=== PATIENT | female | born 1950 | race Caucasian/White ===

== ENCOUNTER 2021-04-05 14:41 | Outpatient (REF) | payer MEDICARE, SELFPAY ==
--- NOTE | ~2021-04-05 | XR_ITS ---
EXAMINATION: XR CHEST CLINICAL INFORMATION: Chronic obstructive pulmonary disease COMPARISON: None TECHNIQUE: 2 views of the chest were obtained. FINDINGS: Micra pacer overlies the heart. The lungs are well expanded. Small left pleural effusion. Minimal left basilar atelectasis. No pneumothorax. The cardiac mediastinal silhouette is normal in size with a calcified aorta. Surgical clips in the left cervical soft tissues. Degenerative changes in the spine. XR/XR chest 2V IMPRESSION: Small left pleural effusion.
== END 2021-04-05 14:42 | disposition home or self-care (01) ==
LOC: HO.XRAY 14:41
PROVIDERS: PCP Internal Medicine; Visit Provider Hospitalist
DX: J44.9 Chronic obstructive pulmonary disease, unspecified (principal); J90 Pleural effusion, not elsewhere classified; C64.9 Malignant neoplasm of unspecified kidney, except renal pelvis; C78.02 Secondary malignant neoplasm of left lung; N18.6 End stage renal disease; Z87.891 Personal history of nicotine dependence; Z99.2 Dependence on renal dialysis
CPT/HCPCS: 71046

== ENCOUNTER 2021-04-22 09:57 | Outpatient (REF) | payer MEDICARE, SELFPAY ==
--- NOTE | 2021-04-22 13:24 | PFT_ITS ---
INDICATION: Dyspnea. SPIROMETRY: FEV1 to FVC 67% with an FEV1 of 1.02 L which is 51% predicted and an FVC of 1.52 L which is 57% predicted. No significant response to bronchodilators noted. Of note, there is evidence of small airway disease with an [id number] of 32% predicted. The maximum voluntary ventilation 40% predicted. LUNG VOLUMES: Total lung capacity 75% predicted with an expiratory reserve volume of 72% predicted. DIFFUSION CAPACITY: DLCO 36% predicted. COMPARISONS: None. INTERPRETATION: There is an obstructive ventilatory defect consistent with [id number] COPD. No significant response to bronchodilators noted. There is evidence of small airways disease. There is also severe decrease in maximum voluntary ventilation secondary to deconditioning although cannot rule out neuromuscular conditions. Lung volumes still demonstrate a mild restrictive ventilatory defect consistent with restrictive lung disease. In addition to that, the patient at the severe diffusion impairment secondary to the above. Clinical correlation warranted. Alok Callejas MD MR/MODL / [id number]
== END 2021-04-22 09:58 | disposition home or self-care (01) ==
LOC: HO.RESP 09:57
PROVIDERS: PCP Internal Medicine; Visit Provider Hospitalist
DX: J44.9 Chronic obstructive pulmonary disease, unspecified (principal); J90 Pleural effusion, not elsewhere classified
CPT/HCPCS: 94060; 94727; 94729

== ENCOUNTER → 2021-05-18 14:34 | Outpatient (BNVA) | payer MEDICARE, SELFPAY | PROVIDERS: PCP Internal Medicine; Visit Provider Hospitalist | DX: J44.9 Chronic obstructive pulmonary disease, unspecified (principal); J90 Pleural effusion, not elsewhere classified; C64.9 Malignant neoplasm of unspecified kidney, except renal pelvis | CPT/HCPCS: 94618; 99212 ==

== ENCOUNTER → 2021-08-23 10:51 | Outpatient (BNVA) | payer MEDICARE, SELFPAY | PROVIDERS: PCP Internal Medicine; Visit Provider Hospitalist | DX: J44.9 Chronic obstructive pulmonary disease, unspecified (principal); J90 Pleural effusion, not elsewhere classified; C64.9 Malignant neoplasm of unspecified kidney, except renal pelvis; N18.6 End stage renal disease; Z79.899 Other long term (current) drug therapy; Z99.2 Dependence on renal dialysis | CPT/HCPCS: 99212 ==

== ENCOUNTER 2021-09-16 10:08 | Outpatient (REF) | payer MEDICARE, SELFPAY ==
--- NOTE | ~2021-09-16 | XR_ITS ---
EXAMINATION: XR CHEST CLINICAL INFORMATION: Dyspnea COMPARISON: Chest 04/05/2021. TECHNIQUE: 2 views of the chest were obtained. FINDINGS: There is a small right pleural effusion with underlying atelectasis. The lungs are otherwise well-expanded. There are postsurgical sutures in the left lower lobe. The heart size and pulmonary vascularity is normal. There is a right jugular inserted port catheter with its tip in the mid to distal SVC. No gross bony abnormality seen. There is a digital cardiac recorder over anterior left pericardium. XR/XR chest 2V IMPRESSION: New small right pleural effusion with underlying atelectasis/consolidation. Postsurgical changes in the left lower lobe.
[2021-09-16 12:37] LABS: Basophils Absolute Auto 0.1 X10*3/uL (0.0-0.2); Basophils Percent Auto 0.7 % (0-2); Eosinophils Absolute Auto 2.9 X10*3/uL (0.0-0.4); Eosinophils Percent Auto 26.9 % (0-4); Hematocrit 24.8 % (37.0-47.0); Hemoglobin 7.7 g/dl (12.0-16.0); Imm Gran Abs Auto 0.05 X10*3/uL (0.00-0.03); Imm Gran Pct Auto 0.5 % (0.0-0.4); Lymphocytes Absolute Auto 0.8 X10*3/uL (1.2-4.9); Lymphocytes Percent Auto 7.5 % (20-40); MANUAL DIFF FLAG SCAN; Mean Corpuscular Hemoglobin 32.6 pg (27.0-33.0); Mean Corpuscular Volume 105.1 fL (80.0-98.0); Mean Platelet Volume 10.6 fL (9.4-12.3); Monocytes Percent Auto 9.1 % (2-11); Neutrophils Absolute Auto 5.9 x10*3/uL (2.0-8.3); Neutrophils Percent Auto 55.3 % (45-73); Platelet Count 188 X10*3/uL (160-400); Red Blood Count 2.36 X10*6/uL (4.20-5.50); Red Cell Distribution Width 15.2 % (11.0-16.0); SCAN SMEAR FLAG 1; White Blood Count 10.6 X10*3/uL (4.8-10.8)
[2021-09-16 12:53] LABS: D Dimer High Sensitivity 695 NG/ML
[2021-09-16 13:04] LABS: Troponin-I High Sensitivity 12.8 ng/L (<3.5-17.0)
[2021-09-16 13:10] LABS: Alanine Aminotransferase 15 U/L (0-31); Alkaline Phosphatase 88 U/L (39-117); Anion Gap 17 (12-20); Aspartate Amino Transferase 16 U/L (5-31); Bilirubin Direct < 0.2 mg/dL (0.0-0.5); Bilirubin Total 0.3 mg/dL (0.0-1.0); Blood Urea Nitrogen 34 mg/dL (9-16); Calcium 9.3 mg/dL (8.4-10.2); Carbon Dioxide 29 mmol/L (22-29); Chloride 100 mmol/L (96-108); Estimated Glomerular Filt Rate 6; Glucose Random 90 mg/dL (60-115); Potassium 4.9 mmol/L (3.3-5.1); Sodium 141 mmol/L (135-145); Total Protein 5.6 g/dL (6.5-8.0)
[2021-09-16 13:13] LABS: SLIDE REVIEW VERIFIED
[2021-09-16 13:20] LABS: Erythrocyte Sedimentation Rate 104 MM/HR (0-20)
== END 2021-09-16 10:09 | disposition home or self-care (01) ==
LOC: HO.LAB 10:08
PROVIDERS: PCP Internal Medicine; Visit Provider Hospitalist
DX: C64.9 Malignant neoplasm of unspecified kidney, except renal pelvis (principal); J90 Pleural effusion, not elsewhere classified; R06.00 Dyspnea, unspecified; J44.9 Chronic obstructive pulmonary disease, unspecified
CPT/HCPCS: 36415; 71046; 80048; 80076; 84484; 85025; 85379; 85652; 94618; 99212

== ENCOUNTER → 2021-10-06 12:32 | Outpatient (REF) | payer MEDICARE, SELFPAY ==
--- NOTE | ~2021-10-06 | XR_ITS ---
EXAMINATION: XR CHEST CLINICAL INFORMATION: Pleural effusion COMPARISON: Chest x-ray 09/16/2021 TECHNIQUE: 2 views of the chest were obtained. FINDINGS: Stable cardiac silhouette. Loop recorder projects over the heart. Right chest port in stable position with tip terminating within the distal SVC. There is atherosclerotic disease of the aortic arch. Lungs are adequately aerated. A small right-sided pleural effusion is again noted, relatively stable in size. Subtle right basilar opacities likely represent atelectasis. Postsurgical changes of the left lower lung are again noted. No pneumothorax. Diffuse osteopenia with moderate degenerative changes of the spine. XR/XR chest 2V IMPRESSION: Stable small right-sided pleural effusion.
--- NOTE | ~2021-10-06 | NM_ITS ---
EXAMINATION: NM LUNG IMAGE PERFUSION CLINICAL INFORMATION: Dyspnea. COMPARISON: Chest x-ray 10/06/2021 TECHNIQUE: Following intravenous administration of 4 mCi of 99m technetium MAA, imaging of both lungs were obtained multiple projections. Ventilation study was not performed. FINDINGS: On perfusion imaging there is known nonsegmental defect along the right lower lobe which corresponds to pleural effusion. On posterior projection there is a nonsegmental defect left lower lobe the patient has known surgical changes with sutures on the chest exam and this could represent scarring. On recent chest x-ray 10/06/2021 there is no mass seen. However there is minimal blunting of left CP angle. NM/NM pul perfusion IMPRESSION: Nonsegmental perfusion defect left lower lobe corresponding to area of surgery in the past and on the chest x-ray 10/06/2021. Findings are suggestive of less probability for PE. Nonsegmental defect right lung base corresponds to small pleural effusion seen on today's chest x-rays on 10/06/2021 and 09/16/2021.
== END ==
LOC: HO.NUCMED 12:32
PROVIDERS: PCP Internal Medicine; Visit Provider Hospitalist
DX: J44.9 Chronic obstructive pulmonary disease, unspecified (principal); J40 Bronchitis, not specified as acute or chronic; R06.00 Dyspnea, unspecified; R79.89 Other specified abnormal findings of blood chemistry; M85.88 Other specified disorders of bone density and structure, other site
CPT/HCPCS: 71046; 78580; A9540

== ENCOUNTER → 2021-10-12 10:56 | Outpatient (BNVA) | payer MEDICARE, SELFPAY | PROVIDERS: PCP Internal Medicine; Visit Provider Hospitalist | DX: C64.9 Malignant neoplasm of unspecified kidney, except renal pelvis (principal); J91.0 Malignant pleural effusion; J96.10 Chronic respiratory failure, unspecified whether with hypoxia or hypercapnia; J44.9 Chronic obstructive pulmonary disease, unspecified; N18.6 End stage renal disease; Z99.81 Dependence on supplemental oxygen; Z99.2 Dependence on renal dialysis | CPT/HCPCS: 99212 ==

== ENCOUNTER 2021-11-11 11:41 | Inpatient (IN) | payer MEDICARE, SELFPAY ==
[2021-11-11] VITALS (17 sets, daily range): BP systolic 123–248; BP diastolic 55–138; PULSE 96–125; RESP 18–37; TEMP 36.8–37.9; O2SAT 90–100; BMI 24.1
--- NOTE | ~2021-11-11 | XR_ITS ---
EXAMINATION: XR chest 1V CLINICAL INFORMATION: Shortness of breath, hypoxia. COMPARISON: Prior chest x-ray October 06, 2021. TECHNIQUE: XR chest 1V Tubes and lines: Port-A-Cath in place with its tip projecting over the SVC. Lungs and pleura: There is pulmonary vascular congestion, there is opacification over the left lung base probably infiltrate and/or atelectasis. There is right pleural effusion. Heart and mediastinum: The cardiac silhouette is enlarged.. Bones/soft tissue: Skeletal structures included are normal for patient's age. XR/XR chest 1V IMPRESSION: *Congestive heart failure. *Opacification over the left lung base probably infiltrate and/or atelectasis. *Moderate-sized right pleural effusion. *Port-A-Cath in place properly positioned.
--- NOTE | ~2021-11-11 | CT_ITS ---
EXAMINATION: CT CHEST WITHOUT CONTRAST CLINICAL INFORMATION: Acute respiratory failure, rule out pneumonia, rule out Covid COMPARISON: Chest x-ray 11/11/2021 TECHNIQUE: Multidetector volumetric CT imaging of the chest was done. Axial MIP volume rendering provided. Sagittal and coronal reformatted images were obtained. This CT examination was performed using dose optimization techniques as appropriate, variously including the following: *Automated exposure control *Adjustment of mA and/or kV according to patient size (this includes techniques or standardized protocols for targeted exams where dose is matched to indication/reason for exam; i.e. extremities or head) *Use of iterative reconstruction technique DLP: 110 mGy-cm FINDINGS: LUNGS: There are regions of confluent consolidation in the lingula, basilar left lower lobe, posterior basilar right lower lobe, and extensively throughout the right middle lobe. Additional patchy areas of mixed consolidation and groundglass opacity are present within the bilateral upper lobes and superior left lower lobe. Overall constellation of findings favors multifocal pneumonia. Some superimposed noninfectious nodularity, such as from metastatic disease, cannot be excluded. MEDIASTINUM: Visualized thyroid gland is grossly unremarkable. A few mildly enlarged prevascular and subcarinal lymph nodes are noted, which may be reactive. Cardiac size is within normal limits; no pericardial effusion. Leadless pacemaker noted. Right IJ port catheter tip lies in the region of the cavoatrial junction. Coronary artery calcifications are present. There is atherosclerotic calcification along the aorta. PLEURA: Trace pleural effusions are present, right greater than left. No pneumothorax. AXILLA: No lymphadenopathy. UPPER ABDOMEN: Unremarkable. OSSEOUS STRUCTURES: There is an expansile, lytic soft tissue lesion involving much of the right 12th rib which is suboptimally delineated on this noncontrast exam. Degenerative changes are noted in the spine. CT/CT chest wo con IMPRESSION: 1. Multifocal confluent and patchy consolidations as detailed above, suspicious for multifocal pneumonia. Appearance is not characteristic for Covid pneumonia. 2. Trace right greater than left pleural effusions. 3. Expansile lytic lesion involving much of the right 12th rib, suspicious for osseous metastasis. 4. Mild mediastinal lymphadenopathy, which could be reactive or malignant in nature.
--- NOTE | ~2021-11-11 | CT_ITS ---
EXAMINATION: CT head/brain wo con INDICATION INFORMATION: Reason for Exam changes in mental status COMPARISON: None TECHNIQUE: Separate noncontrast CT examinations of the head was performed. Coronal and sagittal images were created for each examination at the technologist workstation. This CT examination was performed using dose optimization techniques as appropriate, variously including the following: *Automated exposure control *Adjustment of mA and/or kV according to patient size (this includes techniques or standardized protocols for targeted exams where dose is matched to indication/reason for exam; i.e. extremities or head) *Use of iterative reconstruction technique DLP: 704 mGy-cm FINDINGS: Head: No acute osseous or soft tissue abnormality. Small layering fluid in the mastoid and sphenoid sinuses and frothy secretions in the left frontal sinus. There is no evidence of acute intracranial hemorrhage. No abnormal mass effect or midline shift is seen. No extra-axial fluid collections are identified. No hydrocephalus. No significant volume loss. Age-indeterminate hypodensity involving the head of the right caudate. Parenchymal hypodensity and loss of jorgensen-white matter differentiation involving the left occipital lobe, concerning for acute infarct. There are several punctate calcifications involving the left basal ganglia and insula CT/CT head/brain wo con IMPRESSION: Findings concerning for an evolving acute infarct involving the left occipital lobe. There is also an age-indeterminate hypodensity involving the head of the right caudate. Recommend further evaluation with noncontrast MRI of the brain. Above impression was communicated to Dr. Miranda on 11/14/2021 at 10:29 AM
--- NOTE | 2021-11-11 11:48 | ECG_ITS ---
Test Reason : diff breathing Blood Pressure : / mmHG Vent. Rate : 092 BPM Atrial Rate : 092 BPM P-R Int : 142 ms QRS Dur : 096 ms QT Int : 368 ms P-R-T Axes : 047 010 046 degrees QTc Int : 455 ms Normal sinus rhythm Possible Left atrial enlargement Minimal voltage criteria for LVH, may be normal variant ( [place] product ) Nonspecific ST abnormality Abnormal ECG No previous ECGs available Referred By: Ailyn Berumen Electronically Signed By:SIMI MELGAR MD
--- NOTE | 2021-11-11 11:49 | ED.SOB ---
HPI - SOB/Dyspnea General Chief Complaint: Dyspnea Stated Complaint: DIFF BREATHING Time Seen by Provider: 11/11/21 11:43 Source: patient, EMS and old records reviewed Mode of arrival: EMS Limitations: no limitations History of Present Illness HPI Narrative: 71 yo female with history of O2 dependent COPD on 1L NC at baseline, ESRD on HD M/W/F, metastatic renal cell carcinoma with pulmonary metastasis (s/p wedge resection 2020) & malignant pleural effusion s/p chemo & Ketruda who presents to the ER with worsening SOB and difficulty breathing over the last 5 days. She last got diaysis yesterday and completed a full session. She has been using her inhalers and nebulizers without improvement in her breathing. She noticed she was struggling more yesterday so she increased her oxygen from 1L to 2L NC. She reports feeling warm but denies checking her temperatures to assess for fevers. She is coughing but not bringing up phlegm, she feels like its too deep. She denies any sick contacts. She reports some non-radiating, central chest discomfort since yesterday as well. MD elicited complaint: shortness of breath Pertinent past history: COPD Onset (ago): day(s) (5) Timing: progressively worsening Severity: moderate Exacerbating factors: lying flat and exertion Relieving factors: oxygen, rest and bronchodilators Known history of: COPD Associated symptoms: cough, wheezing and chest congestion Treatment prior to arrival: oxygen and bronchodilator Related Data Home oxygen amount: 1 liter Home Medications Medication Instructions Recorded Confirmed acetaminophen 500 mg tablet 500 mg PO Q6H PRN 04/05/21 (Tylenol Extra Strength) albuterol sulfate 90 mcg/actuation 2 puff inhalation Q6H PRN wheezing 04/05/21 aerosol inhaler amiodarone 200 mg tablet 200 mg PO DAILY 04/05/21 ammonium lactate 12 % topical cream appl topical BID 04/05/21 cetirizine 10 mg tablet 10 mg PO DAILY 04/05/21 cholecalciferol (vitamin D3) 50 50 mcg PO DAILY 04/05/21 mcg (2,000 unit) tablet clopidogrel 75 mg tablet 75 mg PO DAILY 04/05/21 diphenhydramine HCl 25 mg tablet 25 mg PO Q6H PRN 04/05/21 (Benadryl Allergy) levothyroxine 25 mcg tablet 25 mcg PO DAILY 04/05/21 lidocaine 3 % topical cream 1 appl topical BID PRN 04/05/21 losartan 50 mg tablet 50 mg PO BID 04/05/21 metoprolol succinate 25 mg 25 mg PO DAILY 04/05/21 tablet,extended release 24 hr norflurane-pentafluoropropane spray topical 04/05/21 topical spray (Pain Ease Medium [place]) ondansetron 4 mg disintegrating 4 mg PO Q8H PRN nausea/vomiting 04/05/21 tablet prochlorperazine maleate 5 mg 5 mg PO DAILY PRN nausea 04/05/21 tablet sevelamer carbonate 800 mg tablet 1,600 mg PO QID 04/05/21 vitamin B complex-vitamin C-folic 1 tab PO DAILY 04/05/21 acid 0.8 mg tablet (Jackie-Kami) lorazepam 0.5 mg tablet 0.5 mg PO BID PRN anxiety 05/18/21 oxycodone 5 mg tablet 5 mg PO Q4H PRN pain 05/18/21 tramadol 50 mg tablet 25 mg PO Q12H 08/23/21 ropinirole 0.25 mg tablet 0.25 mg PO BID 09/16/21 atorvastatin 40 mg tablet 40 mg PO DAILY 10/12/21 amlodipine 5 mg tablet 1 tab PO DAILY 11/11/21 hydromorphone 2 mg tablet 1 tab PO Q6H PRN severe pain 11/11/21 lidocaine HCl 2 % mucosal solution ml PO 11/11/21 (Lidocaine Viscous) vitamin B complex-vitamin C-folic 1 tab PO DAILY 11/11/21 acid 0.8 mg tablet (Jackie-Kami) Previous Rx's Medication Instructions Recorded albuterol sulfate 2.5 mg (3 mL) inhalation BID 30 04/05/21 days #180 mL fluticasone fur. 100 mcg-umeclid 1 inh inhalation DAILY 30 days #60 05/18/21 62.5 mcg-vilant 25 mcg ea inhalat.powder (Trelegy Ellipta) Allergies Allergy/AdvReac Type Severity Reaction Status Date / Time erythromycin base Allergy Severe GI Upset Verified 10/12/21 11:05 trazodone Allergy Severe Constipatio Verified 10/12/21 11:05 n Penicillins [PENICILLINS] Allergy Intermediate RASH Unverified 10/12/21 11:05 Review of Systems Review of Systems: Constitutional: No Fever, No Chills ENT/Mouth: No sore throat, No Rhinorrhea, No Swallowing Difficulty Eyes: No Eye Pain, No Swelling, No Redness Cardiovascular: + Chest Pain, + SOB, No Orthopnea, No Edema Respiratory: +Cough, No Sputum, No Wheezing, + dyspnea Gastrointestinal: No Nausea, No Vomiting, No Diarrhea, No abdominal Pain, No Hematochezia, No Melena Genitourinary: No Dysuria, No Urinary Frequency, No Hematuria Musculoskeletal: No joint pain, No Myalgias Skin: No Skin Lesions, No rash Neuro: + Weakness, No Numbness, No Dizziness, No Headache Psych: + Anxiety/Panic, No Depression Heme/Lymph: No Bruising, No Lymphadenopathy Endocrine: No Polyuria, No Polydipsia [facility] Past Medical History Medical History (Updated 11/11/21 @ 14:25 by LOUANN Enriquez) Anemia Blood D-dimer assay positive COPD (chronic obstructive pulmonary disease) Dyspnea ESRD (end stage renal disease) on dialysis Pleural effusion Renal cell cancer Social History Social History (Updated 04/05/21 @ 14:58 by LEVAR Lua) Patient Tobacco Use Status: Former Tobacco user Tobacco use type: Cigarette Years Smoked: 30 years Advance Directives: Yes Advance Directives Information Provided: No Advance Directives on File: No Physical Exam Vital Signs: Vital Signs: Last Vital Signs Temp 99.7 F 11/11/21 11:49 Pulse 101 H 11/11/21 14:16 Resp 30 H 11/11/21 14:16 BP 133/73 11/11/21 14:16 Pulse Ox 100 11/11/21 14:16 O2 Del Method 11/11/21 14:16 FiO2 40 11/11/21 14:16 BMI result Body Mass Index 24.1 Appearance: Alert elderly female sitting up in the stretcher, moderate respiratory distress with increased work of breathing and positive accessory muscle use. Eyes: Pupils equal, round and reactive to light. ENT: Pharynx normal. Neck: Normal inspection. Neck supple. +JVD CVS: Tachycardic, regular rhythm Pulses normal. Respiratory: Moderate respiratory distress, diffuse rales and crackles throughout bilateral lung dumont. Positive accessory muscle use. Abdomen: Soft and nontender. +BS x4 Skin: Skin warm and dry. Normal skin color. Normal skin turgor. No rashes. Extremities: No lower extremity edema. Neuro: Oriented X 3. No motor deficit. No sensory deficit. Course Course Course Narrative: 71-year-old female with a history of end-stage renal disease on dialysis Monday and Monday, chronic respiratory failure on 1 L nasal cannula at baseline, COPD, malignant pleural effusion, renal cell carcinoma status post chemo, on palliative care at home who presents to the ER for evaluation of worsening shortness of breath over the last 5 days. Initially on the EMS stretcher patient was on 3 L nasal cannula and breathing comfortably. Patient was transferred to hospital stretcher and patient immediately had increased work of breathing with history rates in the 40s, she was using abdominal muscles to breathe and became pale. Her blood pressure was 250/100. She had diffuse crackles and rales to the apices ever lungs bilaterally. Respiratory called to the bedside for initiation of rescue CPAP. X-ray, EKG, lab workup pending. Patient does not appear grossly volume overloaded but with her respiratory distress and JVD she most likely has flash pulmonary edema. Topical nitropaste ordered and applied. Reevaluation(s) Reevaluation #1: Patient's work of breathing improved on CPAP of 12 with FiO2 40%. Chest x-ray with evidence of CHF, now moderate right-sided pleural effusion, possible left basilar pneumonia. [place] [address]. Will cover for possible pneumonia with vanco and cefepime given she is a dialysis patient, high risk for resistant organisms. Her COVID swab did come back positive. Her family at the bedside reports that she was initially symptomatic for COVID-19 on October 31. She tested positive 2 days later and did her home quarantine. Reevaluation #2: Blood pressure improved 160 systolic. She was also given 10 of IV labetalol. She did not take her antihypertensive this morning, which includes Lopressor. Her initial troponin is elevated at 92.8. Her BNP 1702. Potassium is in the normal range. Will speak with Nephrology about urgent dialysis session. She remains on rescue CPAP, respiratory rate 30, she is much more comfortable however. Reevaluation #3: Spoke with Dr. Jeronimo and Dr. Navarro. Plan is for urgent dialysis now. Will plan to admit to the ICU. She remains on rescue CPAP but overall is much more comfortable. Additional Reevaluation(s): Spoke with Dr. Conner who will admit to ICU for further management. He is recommending additional nitro paste which has been ordered. Patient resting comfortably on CPAP, will hold off on narcotics at this time. Consultations Consultation #1: Nephrology Consultation #2: ICU MDM - SOB/Dyspnea Lab Data Attestation: I reviewed the patient's lab results. Result diagrams: 11/11/21 12:19 11/11/21 12:19 Labs: Lab Results 11/11/21 11/11/21 11/11/21 Range/Units 12:19 12:19 12:19 WBC 16.0 H (4.8-10.8) X10*3/uL RBC 2.78 L (4.20-5.50) X10*6/uL Hgb 8.9 L (12.0-16.0) g/dl Hct 27.9 L (37.0-47.0) % MCV 100.4 H (80.0-98.0) fL MCH 32.0 (27.0-33.0) pg MCHC 31.9 (31.0-35.0) g/dl RDW 15.0 (11.0-16.0) % Plt Count 139 L D (160-400) X10*3/uL MPV 10.5 (9.4-12.3) fL Immature Gran % (Auto) 1.9 H (0.0-0.4) % Neut % (Auto) 94.8 H (45-73) % Lymph % (Auto) 0.8 L (20-40) % [place] % (Auto) 2.2 (2-11) % Eos % (Auto) 0.2 (0-4) % Baso % (Auto) 0.1 (0-2) % Lymph # (Auto) 0.1 L (1.2-4.9) X10*3/uL [place] # (Auto) 0.4 (0.1-1.2) X10*3/uL Eos # (Auto) 0.0 (0.0-0.4) X10*3/uL Baso # (Auto) 0.0 (0.0-0.2) X10*3/uL Abs Immat Gran (auto) 0.30 H (0.00-0.03) X10*3/uL Absolute Neuts (auto) 15.2 H (2.0-8.3) x10*3/uL Absolute Nucleated RBC 0.000 (0.0-0.012) X10*3/uL Nucleated RBC % (auto) 0.0 (0.0-0.2) /100WBC Smear Tech's Comments VERIFIED VBG pH (7.32-7.43) VBG pCO2 mmHg VBG pO2 mmHg VBG HCO3 (22-26) mmol/L VBG O2 Saturation % VBG Base Excess mmol/L Sodium 134 L (135-145) mmol/L Potassium 4.8 (3.3-5.1) mmol/L Chloride 94 L (96-108) mmol/L Carbon Dioxide 25 (22-29) mmol/L Anion Gap 20 (12-20) BUN 49 H (9-16) mg/dL Creatinine 6.09 H* (0.5-1.4) mg/dL Estim Creat Clear Calc 6.9 Estimated GFR 7 Random Glucose 106 (60-115) mg/dL Lactic Acid 1.0 (0.5-2.0) mmol/L Calcium 8.8 (8.4-10.2) mg/dL Magnesium 1.6 (1.6-2.6) mg/dL Total Bilirubin 0.4 (0.0-1.0) mg/dL Direct Bilirubin 0.3 (0.0-0.5) mg/dL AST 16 (5-31) U/L ALT 24 (0-31) U/L Alkaline Phosphatase 86 (39-117) U/L Troponin I High Sens (<3.5-17.0) ng/L B-Natriuretic Peptide (<100) pg/mL Total Protein 5.9 L (6.5-8.0) g/dL Albumin 3.4 L (3.5-5.0) g/dL Procalcitonin ng/mL COVID-19 ([facility]) (Negative) COVID-19 Clin Com 11/11/21 11/11/21 11/11/21 Range/Units 12:19 12:19 12:19 WBC (4.8-10.8) X10*3/uL RBC (4.20-5.50) X10*6/uL Hgb (12.0-16.0) g/dl Hct (37.0-47.0) % MCV (80.0-98.0) fL MCH (27.0-33.0) pg MCHC (31.0-35.0) g/dl RDW (11.0-16.0) % Plt Count (160-400) X10*3/uL MPV (9.4-12.3) fL Immature Gran % (Auto) (0.0-0.4) % Neut % (Auto) (45-73) % Lymph % (Auto) (20-40) % [place] % (Auto) (2-11) % Eos % (Auto) (0-4) % Baso % (Auto) (0-2) % Lymph # (Auto) (1.2-4.9) X10*3/uL [place] # (Auto) (0.1-1.2) X10*3/uL Eos # (Auto) (0.0-0.4) X10*3/uL Baso # (Auto) (0.0-0.2) X10*3/uL Abs Immat Gran (auto) (0.00-0.03) X10*3/uL Absolute Neuts (auto) (2.0-8.3) x10*3/uL Absolute Nucleated RBC (0.0-0.012) X10*3/uL Nucleated RBC % (auto) (0.0-0.2) /100WBC Smear Tech's Comments VBG pH (7.32-7.43) VBG pCO2 mmHg VBG pO2 mmHg VBG HCO3 (22-26) mmol/L VBG O2 Saturation % VBG Base Excess mmol/L Sodium (135-145) mmol/L Potassium (3.3-5.1) mmol/L Chloride (96-108) mmol/L Carbon Dioxide (22-29) mmol/L Anion Gap (12-20) BUN (9-16) mg/dL Creatinine (0.5-1.4) mg/dL Estim Creat Clear Calc Estimated GFR Random Glucose (60-115) mg/dL Lactic Acid (0.5-2.0) mmol/L Calcium (8.4-10.2) mg/dL Magnesium (1.6-2.6) mg/dL Total Bilirubin (0.0-1.0) mg/dL Direct Bilirubin (0.0-0.5) mg/dL AST (5-31) U/L ALT (0-31) U/L Alkaline Phosphatase (39-117) U/L Troponin I High Sens 92.8 H* D (<3.5-17.0) ng/L B-Natriuretic Peptide 1702 H (<100) pg/mL Total Protein (6.5-8.0) g/dL Albumin (3.5-5.0) g/dL Procalcitonin 7.76 ng/mL COVID-19 ([facility]) Positive A (Negative) COVID-19 Clin Com See Note 11/11/21 Range/Units 12:24 WBC (4.8-10.8) X10*3/uL RBC (4.20-5.50) X10*6/uL Hgb (12.0-16.0) g/dl Hct (37.0-47.0) % MCV (80.0-98.0) fL MCH (27.0-33.0) pg MCHC (31.0-35.0) g/dl RDW (11.0-16.0) % Plt Count (160-400) X10*3/uL MPV (9.4-12.3) fL Immature Gran % (Auto) (0.0-0.4) % Neut % (Auto) (45-73) % Lymph % (Auto) (20-40) % [place] % (Auto) (2-11) % Eos % (Auto) (0-4) % Baso % (Auto) (0-2) % Lymph # (Auto) (1.2-4.9) X10*3/uL [place] # (Auto) (0.1-1.2) X10*3/uL Eos # (Auto) (0.0-0.4) X10*3/uL Baso # (Auto) (0.0-0.2) X10*3/uL Abs Immat Gran (auto) (0.00-0.03) X10*3/uL Absolute Neuts (auto) (2.0-8.3) x10*3/uL Absolute Nucleated RBC (0.0-0.012) X10*3/uL Nucleated RBC % (auto) (0.0-0.2) /100WBC Smear Tech's Comments VBG pH 7.37 (7.32-7.43) VBG pCO2 41 mmHg VBG pO2 88 mmHg VBG HCO3 24 (22-26) mmol/L VBG O2 Saturation 96.0 % VBG Base Excess -0.4 mmol/L Sodium (135-145) mmol/L Potassium (3.3-5.1) mmol/L Chloride (96-108) mmol/L Carbon Dioxide (22-29) mmol/L Anion Gap (12-20) BUN (9-16) mg/dL Creatinine (0.5-1.4) mg/dL Estim Creat Clear Calc Estimated GFR Random Glucose (60-115) mg/dL Lactic Acid (0.5-2.0) mmol/L Calcium (8.4-10.2) mg/dL Magnesium (1.6-2.6) mg/dL Total Bilirubin (0.0-1.0) mg/dL Direct Bilirubin (0.0-0.5) mg/dL AST (5-31) U/L ALT (0-31) U/L Alkaline Phosphatase (39-117) U/L Troponin I High Sens (<3.5-17.0) ng/L B-Natriuretic Peptide (<100) pg/mL Total Protein (6.5-8.0) g/dL Albumin (3.5-5.0) g/dL Procalcitonin ng/mL COVID-19 ([facility]) (Negative) COVID-19 Clin Com ECG Data Attestation: I personally reviewed and interpreted this ECG as follows: ECG interpretation date: 11/11/21 ECG interpretation time: 14:15 Prior ECG tracings: available for review Interpretation: Normal sinus rhythm, heart rate 92 beats per minute, normal [place] interval, normal QTC, 1mm ST depressions in V5 and V6 Critical Care Time Critical Care Time Critical Care Time: Yes Total Critical Care Time: 55 Attestation: I have personally provided critical care time exclusive of time spent on separately billable procedures. Time includes review of lab data, radiology results, discussion with consultants, and monitoring for potential decompensation. Intervention performed as documented. Discharge Plan Discharge Clinical Impression: Flash pulmonary edema, Hypertensive urgency, Acute and chronic respiratory failure with hypoxia, Malignant pleural effusion Patient Disposition: Admitted As Inpatient
[2021-11-11] MEDS: Nitroglycerin 2 % Oint 1 GM Packet 1 INCH TRANSDERMA ×2 (12:09→14:11)
[2021-11-11 12:29] LABS: VBG Base Excess -0.4 mmol/L; VBG HCO3 24 mmol/L (22-26); VBG pCO2 41 mmHg; VBG pH 7.37 (7.32-7.43); VBG pO2 88 mmHg
[2021-11-11 12:31] LABS: Basophils Percent Auto 0.1 % (0-2); Eosinophils Percent Auto 0.2 % (0-4); Hematocrit 27.9 % (37.0-47.0); Hemoglobin 8.9 g/dl (12.0-16.0); Imm Gran Pct Auto 1.9 % (0.0-0.4); Lymphocytes Absolute Auto 0.1 X10*3/uL (1.2-4.9); Lymphocytes Percent Auto 0.8 % (20-40); MANUAL DIFF FLAG SCAN; Mean Corpuscular HGB Conc 31.9 g/dl (31.0-35.0); Mean Corpuscular Volume 100.4 fL (80.0-98.0); Mean Platelet Volume 10.5 fL (9.4-12.3); Monocytes Absolute Auto 0.4 X10*3/uL (0.1-1.2); Monocytes Percent Auto 2.2 % (2-11); Neutrophils Absolute Auto 15.2 x10*3/uL (2.0-8.3); Neutrophils Percent Auto 94.8 % (45-73); Platelet Count 139 X10*3/uL (160-400); Red Blood Count 2.78 X10*6/uL (4.20-5.50); SCAN SMEAR FLAG 1
[2021-11-11 12:34] LABS: Venous Blood Gas Refer to POC result
[2021-11-11 12:40] LABS: COVID-19 Test Positive (Negative); IDNOW Serial# 16C4AD1C
[2021-11-11 12:49] LABS: Alanine Aminotransferase 24 U/L (0-31); Albumin Level 3.4 g/dL (3.5-5.0); Alkaline Phosphatase 86 U/L (39-117); Anion Gap 20 (12-20); Aspartate Amino Transferase 16 U/L (5-31); Bilirubin Direct 0.3 mg/dL (0.0-0.5); Bilirubin Total 0.4 mg/dL (0.0-1.0); Blood Urea Nitrogen 49 mg/dL (9-16); Calcium 8.8 mg/dL (8.4-10.2); Carbon Dioxide 25 mmol/L (22-29); Chloride 94 mmol/L (96-108); Creatinine Clr Calc Pharmacy 6.9; Estimated Glomerular Filt Rate 7; Glucose Random 106 mg/dL (60-115); Magnesium 1.6 mg/dL (1.6-2.6); Potassium 4.8 mmol/L (3.3-5.1); Sodium 134 mmol/L (135-145); Total Protein 5.9 g/dL (6.5-8.0)
[2021-11-11 12:51] LABS: B Type Natriuretic Peptide 1702 pg/mL (<100); Troponin-I High Sensitivity 92.8 ng/L (<3.5-17.0)
[2021-11-11 13:03] LABS: Procalcitonin 7.76 ng/mL
[2021-11-11 13:10] LABS: SLIDE REVIEW VERIFIED
--- NOTE | 2021-11-11 15:09 | PHA.MEDREC ---
Pharmacy Consult ? Medication Reconciliation Pharmacy has completed the medication reconciliation. Med rec based on claim history
--- NOTE | 2021-11-11 15:30 | PHA.MEDREC ---
Pharmacy Consult ? Medication Reconciliation Pharmacy has completed the medication reconciliation. Completed med rec based on claim history as pt was on breathing machine, no notes or lists in chart. Entered magic mouth wash as lidocaine on med rec since not available, let provider know.;
[2021-11-11 16:05] LABS: Troponin-I High Sensitivity 176.5 ng/L (<3.5-17.0)
[2021-11-11] MEDS: HYDROmorphone HCl 0.5 MG/0.5 ML SYRINGE IVPUSH (17:00)
--- NOTE | 2021-11-11 17:10 | PM.CCHP ---
History of Present Illness Date of Service: 11/11/21 Attending physician on admission: Florentin Conner Chief Complaint: Acute respiratory distress Mrs. Webster is admitted to the ICU with acute respiratory failure secondary to hypertensive crisis induced acute pulmonary edema, for urgent hemodialysis. The patient is a 71 yo female with PMHx of O2 dependent COPD on 1L NC at home; ESRD on HD M/W/F via left arm AVF; metastatic renal cell carcinoma with pulmonary metastasis (s/p wedge resection 2020) & malignant pleural effusion, s/p chemo & Ketruda, and anemia.? She is on palliative care at home, and has DNR/DNI status. Her COVID swab did come back positive.? The patient became symptomatic for COVID-19 on October 31, tested positive 2 days later, and did her home quarantine. She was BIBA with worsening SOB x 5 days. ?She last got a full session of dialysis yesterday. She has been using her inhalers and nebulizers without improvement. ?She increased her oxygen yesterday from 1L to 2L NC. ?She reports feeling warm but did not check her temperature. She has a nonproductive cough. ?She denies sick contacts. Her medications include amiodarone, clopidogrel, thyroid, losartan, amlodipine, metoprolol, atorvastatin, oxycodone, and hydromorphone. On arrival to the ED, patient was in moderate respiratory distress with increased work of breathing and accessory muscle use.? On 40% FiO2, RR was 30, Sat 100%, HR 100, initial BP 248/104, afebrile.? She had JVD, and diffuse rales and crackles throughout the lungs.? There was no lower extremity edema.? Chest x-ray showed bilateral pulmonary infiltrates, read by the radiologist as pulmon vascular congestion/CHF, with probable bilateral pleural effusions and left lower lobe opacity of unclear etiology, not too different qualitatively from previous films, just worse. ED labs notable for a white count of 16, hemoglobin 8.9, BUN/creatinine 49/6.0, bicarb 25, potassium 4.8, lactic acid 1.0, troponin 92 which evans to 176, BNP 1702.? Venous blood gas showed 7.37/41/0.? COVID swab was positive. She was put on CPAP, blood cultures were drawn and she was given antibiotics.? She was given NTP and her BP dropped to 160 systolic.? I advised more NTP and opiates to slow her WOB.? She was then admitted to ICU for urgent HD. On my exam, she is fully awake and oriented, breathing easy on CPAP, doesn?t look very ill, and looks thoroughly nontoxic.? HR 107, BP 172/78 w 2? NTP on her chest.? On CPAP 10/30%, RR was 30, Vt 330cc, Ve 10L, Sat 99%.? We switched her to BiPAP 10/5/30%, RR was 29, Vt 460cc, Ve 13L, Sat 99%.? Temp 99?.? No JVD, no edema. IMPRESSION: 1. Underlying O2 dependent COPD 2. ESRD 3. Metastatic renal cell carcinoma, on palliative care at home.? DNR/DNI status. 4. Anemia. 5. COVID w symptom onset date October 31.? Given her comorbidities, it?s very possible that she?s still infectious.?? It?s also very possible that she?s entering the pulmonary phase. 6. Acute respiratory distress/respiratory failure.? Looks to be garden variety acute pulmonary edema 2? hypertensive crisis, that usually happens in the ESRD patients who miss a HD session (i.e. they?re underdialyzed).? And usually responds promptly to high dose IV nitroglycerin, if enough is given.? Could possibly have avoided the need for acute HD, given that this patient was not underdialyzed and was not volume overloaded. 7. ID:? I?m very doubtful that she has bacterial pneumonia.? I canceled the antibiotics that the ED had written for her. But it?s important to keep in mind that this patient is in the stage of COVID where she could enter the pulmonary phase, and develop resp failure 2? COVID, as opposed to pulmon edema.? I would suggest a chest CT when dialysis is over to further define what her current pulmonary process is, given that the CXR is not 100% clear. In any event, if she does well, she can be discharged from the ICU to the med-surg after the HD session. And if everything goes well, she doesn't need any labs tomorrow morning. ADDENDUM: At end of HD, BP is 187/99. The patient tells us that she didn't take her BP meds today (amlodipine, losartan, and metoprolol). We'll give them to her now. Also put 2 NTP back on. She's breathing easy. Came off BiPAP onto 2L NC with no problem. ADDENDUM at 20:26: BP now 127/55. She's lying comfortably in bed, breathing easy, Sat 92-94% on 2L NC. Will send her up to med-surg, stopping thru radiology to get a noncontrast chest CT on the way upstairs. Signed out to Dr. Pink. Critical care time (including extended discussion with ED staff, and multiple discussion with renal):? 80+ minutes [facility] Past Medical History Medical History (Updated 11/11/21 @ 14:25 by LOUANN Enriquez) Anemia Blood D-dimer assay positive COPD (chronic obstructive pulmonary disease) Dyspnea ESRD (end stage renal disease) on dialysis Pleural effusion Renal cell cancer Social History Social History (Updated 04/05/21 @ 14:58 by LEVAR Lua) Household Members: Family and None Housing: House Do you presently have visiting nurse or other home services: Yes Patient Tobacco Use Status: Former Tobacco user Tobacco use type: Cigarette Years Smoked: 30 years Smoked in Last 30 Days: No Use of substances other than those prescribed or required for medical reasons: No Advance Directives: No Advance Directives Information Provided: No Advance Directives on File: No Do you have thoughts of harming others: None Recently lost weight without trying: No Nutrition Risks: No Nutritional Risk Patient : No : No Poor oral hygiene: No Meds Allergies Allergy/AdvReac Type Severity Reaction Status Date / Time erythromycin base Allergy Severe GI Upset Verified 10/12/21 11:05 trazodone Allergy Severe Constipatio Verified 10/12/21 11:05 n Penicillins [PENICILLINS] Allergy Intermediate RASH Unverified 10/12/21 11:05 Active Medications: Current Medications Hydromorphone HCl (Hydromorphone Hcl 0.5 Mg/0.5 Ml Syringe) 0.5 mg IVPUSH Q30M PRN; Protocol PRN Reason: WOB Pharmacy Consult (Consult Rx Perform Med Rec) 1 each MISCELLANE ONCE PRN PRN Reason: Consult order Home Medications Medication Instructions Recorded Confirmed Last Taken Type albuterol sulfate 90 mcg/actuation 2 puff inhalation Q6H PRN wheezing 04/05/21 11/11/21 Unknown History aerosol inhaler amiodarone 200 mg tablet 200 mg PO DAILY 04/05/21 11/11/21 Unknown History cetirizine 10 mg tablet 10 mg PO DAILY 04/05/21 11/11/21 Unknown History cholecalciferol (vitamin D3) 50 50 mcg PO DAILY 04/05/21 11/11/21 Unknown History mcg (2,000 unit) tablet clopidogrel 75 mg tablet 75 mg PO DAILY 04/05/21 11/11/21 Unknown History levothyroxine 25 mcg tablet 25 mcg PO DAILY 04/05/21 11/11/21 Unknown History losartan 50 mg tablet 50 mg PO BID 04/05/21 11/11/21 Unknown History metoprolol succinate 25 mg 25 mg PO DAILY 04/05/21 11/11/21 Unknown History tablet,extended release 24 hr norflurane-pentafluoropropane 1 spray topical ONCE 04/05/21 11/11/21 Unknown History topical spray (Pain Ease Medium [place]) sevelamer carbonate 800 mg tablet 1,600 mg PO QID 04/05/21 11/11/21 Unknown History vitamin B complex-vitamin C-folic 1 tab PO DAILY 04/05/21 11/11/21 Unknown History acid 0.8 mg tablet (Jackie-Kami) lorazepam 0.5 mg tablet 0.5 mg PO BID PRN anxiety 05/18/21 11/11/21 Unknown History oxycodone 5 mg tablet 5 mg PO Q4H PRN pain 05/18/21 11/11/21 Unknown History tramadol 50 mg tablet 25 mg PO Q12H 08/23/21 11/11/21 Unknown History ropinirole 0.25 mg tablet 0.25 mg PO BID 09/16/21 11/11/21 Unknown History atorvastatin 40 mg tablet 40 mg PO DAILY 10/12/21 11/11/21 Unknown History amlodipine 5 mg tablet 1 tab PO DAILY 11/11/21 11/11/21 Unknown History lidocaine HCl 2 % mucosal solution 5 ml mucous membrane Q4H PRN Mouth 11/11/21 11/11/21 Unknown History (Lidocaine Viscous) Pain vitamin B complex-vitamin C-folic 1 tab PO DAILY 11/11/21 11/11/21 Unknown History acid 0.8 mg tablet (Jackie-Kami) Physical Exam Vital Signs: Vital Signs: Last Vital Signs Temp 99.0 F 11/11/21 17:00 Pulse 108 H 11/11/21 17:00 Resp 35 H 11/11/21 17:00 BP 169/82 H 11/11/21 17:00 Pulse Ox 97 11/11/21 17:00 O2 Del Method 11/11/21 17:00 O2 Flow Rate 15 11/11/21 15:46 FiO2 40 11/11/21 14:16 BMI result Body Mass Index 24.1 Results Labs CBC and Chem 7: 11/11/21 12:19 11/11/21 12:19 Labs: Laboratory Results - last 24 hr 11/11/21 11/11/21 11/11/21 12:19 12:19 12:19 MCV 100.4 H MCH 32.0 MCHC 31.9 RDW 15.0 Plt Count 139 L D MPV 10.5 Immature Gran % (Auto) 1.9 H Neut % (Auto) 94.8 H Lymph % (Auto) 0.8 L [place] % (Auto) 2.2 Eos % (Auto) 0.2 Baso % (Auto) 0.1 Lymph # (Auto) 0.1 L [place] # (Auto) 0.4 Eos # (Auto) 0.0 Baso # (Auto) 0.0 Abs Immat Gran (auto) 0.30 H Absolute Neuts (auto) 15.2 H Absolute Nucleated RBC 0.000 Nucleated RBC % (auto) 0.0 Smear Tech's Comments VERIFIED VBG pH VBG pCO2 VBG pO2 VBG HCO3 VBG O2 Saturation VBG Base Excess Anion Gap 20 Estim Creat Clear Calc 6.9 Estimated GFR 7 Random Glucose 106 Lactic Acid 1.0 Calcium 8.8 Magnesium 1.6 Total Bilirubin 0.4 Direct Bilirubin 0.3 AST 16 ALT 24 Alkaline Phosphatase 86 Troponin I High Sens B-Natriuretic Peptide Total Protein 5.9 L Albumin 3.4 L Procalcitonin COVID-19 ([facility]) COVID-19 Clin Com 11/11/21 11/11/21 11/11/21 12:19 12:19 12:19 MCV MCH MCHC RDW Plt Count MPV Immature Gran % (Auto) Neut % (Auto) Lymph % (Auto) [place] % (Auto) Eos % (Auto) Baso % (Auto) Lymph # (Auto) [place] # (Auto) Eos # (Auto) Baso # (Auto) Abs Immat Gran (auto) Absolute Neuts (auto) Absolute Nucleated RBC Nucleated RBC % (auto) Smear Tech's Comments VBG pH VBG pCO2 VBG pO2 VBG HCO3 VBG O2 Saturation VBG Base Excess Anion Gap Estim Creat Clear Calc Estimated GFR Random Glucose Lactic Acid Calcium Magnesium Total Bilirubin Direct Bilirubin AST ALT Alkaline Phosphatase Troponin I High Sens 92.8 H* D B-Natriuretic Peptide 1702 H Total Protein Albumin Procalcitonin 7.76 COVID-19 ([facility]) Positive A COVID-19 Clin Com See Note 11/11/21 11/11/21 12:24 15:27 MCV MCH MCHC RDW Plt Count MPV Immature Gran % (Auto) Neut % (Auto) Lymph % (Auto) [place] % (Auto) Eos % (Auto) Baso % (Auto) Lymph # (Auto) [place] # (Auto) Eos # (Auto) Baso # (Auto) Abs Immat Gran (auto) Absolute Neuts (auto) Absolute Nucleated RBC Nucleated RBC % (auto) Smear Tech's Comments VBG pH 7.37 VBG pCO2 41 VBG pO2 88 VBG HCO3 24 VBG O2 Saturation 96.0 VBG Base Excess -0.4 Anion Gap Estim Creat Clear Calc Estimated GFR Random Glucose Lactic Acid Calcium Magnesium Total Bilirubin Direct Bilirubin AST ALT Alkaline Phosphatase Troponin I High Sens 176.5 H* D B-Natriuretic Peptide Total Protein Albumin Procalcitonin COVID-19 ([facility]) COVID-[employer] Clin Com Imaging Radiologist's Impressions: Impressions Chest X-Ray 11/11/21 12:09 IMPRESSION: *Congestive heart failure. *Opacification over the left lung base probably infiltrate and/or atelectasis. *Moderate-sized right pleural effusion. *Port-A-Cath in place properly positioned. Critical Care Time Critical Care Time (minutes): 90
[2021-11-11 19:15] LABS: Troponin-I High Sensitivity 369.7 ng/L (<3.5-17.0)
[2021-11-11] MEDS: amLODIPine Besylate 5 MG TABLET PO (19:53)
[2021-11-11] MEDS: Metoprolol Succinate ER 50 MG TAB.ER.24H PO (19:53)
[2021-11-11] MEDS: Nitroglycerin 2 % Oint 1 GM Packet 2 INCH TRANSDERMA (19:54)
[2021-11-11] MEDS: Losartan Potassium 50 MG TABLET PO (19:54)
[2021-11-11] MEDS: rOPINIRole HCL 0.25 MG TABLET PO (21:55)
[2021-11-11] MEDS: traMADoL HCL 50 MG TABLET 25 MG PO (23:19)
[2021-11-12] VITALS (13 sets, daily range): BP systolic 119–176; BP diastolic 58–82; PULSE 86–141; RESP 16–35; TEMP 36.5–37.2; O2SAT 77–95; BMI 22.9
[2021-11-12] MEDS: oxyCODONE HCl Immed Release 5 MG TABLET PO ×3 (03:20→17:46)
[2021-11-12] MEDS: Levothyroxine Sodium 25 MCG TABLET PO (06:28)
[2021-11-12] MEDS: Amiodarone HCL 200 MG TABLET PO (08:40)
[2021-11-12] MEDS: Cholecalciferol (Vitamin D3) 25 MCG TABLET 50 MCG PO (08:40)
[2021-11-12] MEDS: rOPINIRole HCL 0.25 MG TABLET PO ×2 (08:40→21:31)
[2021-11-12] MEDS: Sevelamer Carbonate Tablet 800 MG TABLET 1600 MG PO ×2 (08:41→21:31)
[2021-11-12] MEDS: Losartan Potassium 50 MG TABLET PO (08:41)
[2021-11-12] MEDS: Atorvastatin Calcium 40 MG TABLET PO (08:41)
[2021-11-12] MEDS: Multivitamin TABLET 1 TAB PO (08:41)
[2021-11-12] MEDS: Loratadine 10 MG TABLET PO (08:41)
[2021-11-12] MEDS: amLODIPine Besylate 5 MG TABLET PO (08:41)
[2021-11-12] MEDS: Metoprolol Succinate ER 25 MG TAB.ER.24H PO (08:42)
[2021-11-12] MEDS: Clopidogrel Bisulfate 75 MG TABLET PO (08:42)
[2021-11-12] MEDS: traMADoL HCL 50 MG TABLET 25 MG PO ×2 (08:53→21:31)
[2021-11-12 08:58] LABS: Hematocrit 26.6 % (37.0-47.0); Hemoglobin 8.6 g/dl (12.0-16.0); Mean Corpuscular HGB Conc 32.3 g/dl (31.0-35.0); Mean Corpuscular Hemoglobin 32.1 pg (27.0-33.0); Mean Corpuscular Volume 99.3 fL (80.0-98.0); Mean Platelet Volume 10.1 fL (9.4-12.3); Platelet Count 138 X10*3/uL (160-400); Red Blood Count 2.68 X10*6/uL (4.20-5.50); Red Cell Distribution Width 14.6 % (11.0-16.0)
[2021-11-12 09:10] LABS: D Dimer High Sensitivity 1655 NG/ML
[2021-11-12 09:26] LABS: Calcium 8.1 mg/dL (8.4-10.2); Glucose Random 132 mg/dL (60-115); Lactate Dehydrogenase 205 U/L (122-220)
[2021-11-12 09:45] LABS: Procalcitonin 24.85 ng/mL
[2021-11-12 10:03] LABS: Anion Gap 25 (12-20); Blood Urea Nitrogen 71 mg/dL (9-16); Carbon Dioxide 21 mmol/L (22-29); Chloride 94 mmol/L (96-108); Creatinine Clr Calc Pharmacy 4.8; Estimated Glomerular Filt Rate 5; Potassium 5.8 mmol/L (3.3-5.1); Sodium 134 mmol/L (135-145)
[2021-11-12 10:06] LABS: C Reactive Protein 41.65 mg/dL (< or = 0.50)
[2021-11-12 10:49] LABS: Ferritin 3601 ng/mL (10-250)
--- NOTE | 2021-11-12 12:30 | CONS_ITS ---
DATE OF SERVICE: 11/12/2021 HISTORY OF PRESENT ILLNESS: I was asked to see patient to assist in evaluation and management of patient's dialysis needs as well as ultrafiltration needs in the setting of what appears to be hypertensive crisis with acute pulmonary edema. In summary, patient is a 71-year-old female with end-stage renal disease, dialyzes Monday, Monday, Monday and actually had dialysis yesterday, who now presents to the hospital with severe shortness of breath. There is also mention made that she developed COVID positive on November 02. In the emergency room, she was very short of breath and was also noted to be markedly hypertensive with systolic blood pressure over 140. X-ray showed pulmonary infiltrates consistent with pulmonary vascular congestion. Her blood pressure did come down with some treatment; however, she remained very short of breath. Decision was made to ultrafiltrate her to get her out of pulmonary edema. PAST MEDICAL HISTORY: Notable for COPD; end-stage renal disease on Monday, Monday, Monday dialysis; and history of renal cell cancer. Information was obtained from electronic medical records as patient was not able to provide much in the way of information. MEDICATIONS: On admission are noted in the admitting notes. Current medications are noted in the MAR. REVIEW OF SYSTEMS: Unobtainable. ALLERGIES: NOTED IN THE ELECTRONIC MEDICAL RECORD. PHYSICAL EXAMINATION: GENERAL: She is on BiPAP, having difficult time with breathing, unable really to converse. HEENT: Head is atraumatic. Mucous membranes are moist. LUNGS: Rhonchi and rales. CARDIAC: Regular rate and rhythm. ABDOMEN: Soft. EXTREMITIES: No edema. LABORATORY DATA: Show hemoglobin 8.9, hematocrit 27.9, white blood cell count 16,000. Sodium 134, potassium 4.8, chloride 94, bicarb 25. BNP was 1702. IMPRESSION: 71-year-old end-stage renal disease patient admitted with hypertensive crisis and acute pulmonary edema on the backdrop of end-stage renal disease, chronic obstructive pulmonary disease, and recent COVID. 1. Severe shortness of breath. This is most likely hypertensive crisis with pulmonary edema. Controlling her blood pressure improved her breathing somewhat, but not as much as we would like so we would go ahead and ultrafiltrate her for a few hours, pull fluid, and see if this helps with her respiratory decompensated state. She is being seen by the bundle cutter and other considerations such as COVID lung needs to be entertained. 2. End-stage renal disease. Normally dialyzes Monday, Monday, Monday. Keep her on that schedule. 3. Anemia. 4. Hypertensive crisis. Blood pressure medications as noted will be continued and we will track her blood pressures. SUGGESTIONS: At this time include, 1. Emergent ultrafiltration. 2. Follow her respiratory status closely. 3. Control her blood pressure. 4. Continue routine medications. 5. Continue with dialysis on Monday, Monday, and Monday. MD DAQUAN Villa/GWEN / [phone]
[2021-11-12] MEDS: ondansetron HCL 4 MG/2 ML VIAL IVPUSH (13:10)
--- NOTE | 2021-11-12 14:09 | P.PNNP_ITS ---
Subjective Subjective Date of Service: 11/12/21 Interval history: seen on HD today continues to be short of breath rhinorrhea noted Physical Exam Vital Signs: Vital Signs: Last Vital Signs Temp 98.0 F 11/12/21 12:04 Pulse 88 11/12/21 12:04 Resp 19 11/12/21 12:04 BP 153/67 H 11/12/21 12:04 Pulse Ox 91 L 11/12/21 13:20 O2 Del Method 11/12/21 13:20 O2 Flow Rate 4 11/12/21 13:20 FiO2 30 11/11/21 18:51 Oxygen Flow Rate 30 11/11/21 14:04 BMI result Body Mass Index 22.9 Const: General: alert, awake and in distress Chest: Chest palpation & inspection: normal inspection of the chest Resp: Effort & Inspection: Actively coughing and labored Auscultation: rales Cardio: Rate: regular rate GI: Inspection: Yes normal to inspection Palpation (GI): Soft to palpation Extrem: Other: LUE AVF with bruit and thrill. Objective Data Labs CBC & Chem 7: 11/12/21 08:51 11/12/21 08:51 Labs: Laboratory Results - last 24 hr 11/11/21 11/11/21 11/12/21 15:27 18:27 08:51 WBC 18.0 H RBC 2.68 L Hgb 8.6 L Hct 26.6 L MCV 99.3 H MCH 32.1 MCHC 32.3 RDW 14.6 Plt Count 138 L MPV 10.1 Absolute Nucleated RBC 0.000 Nucleated RBC % (auto) 0.0 D-Dimer High Sensitivty Sodium Potassium Chloride Carbon Dioxide Anion Gap BUN Creatinine Estim Creat Clear Calc Estimated GFR Random Glucose Calcium Ferritin Lactate Dehydrogenase Troponin I High Sens 176.5 H* D 369.7 H* D C-Reactive Protein Procalcitonin 11/12/21 11/12/21 11/12/21 08:51 08:51 08:51 WBC RBC Hgb Hct MCV MCH MCHC RDW Plt Count MPV Absolute Nucleated RBC Nucleated RBC % (auto) D-Dimer High Sensitivty 1655 Sodium 134 L Potassium 5.8 H D Chloride 94 L Carbon Dioxide 21 L Anion Gap 25 H BUN 71 H Creatinine 7.92 H* Estim Creat Clear Calc 4.8 Estimated GFR 5 Random Glucose 132 H Calcium 8.1 L D Ferritin 3601 H Lactate Dehydrogenase 205 Troponin I High Sens C-Reactive Protein 41.65 H Procalcitonin 24.85 Procedures Date of Service Date of Service: 11/12/21 Assessment & Plan Assessment and plan (1) Flash pulmonary edema: Status: Acute (2) Hypertensive urgency: Status: Acute (3) Renal cancer: Status: Acute Plan 71-year-old end-stage renal disease patient admitted with hypertensive crisis and acute pulmonary edema on the backdrop of end-stage renal disease, chronic obstructive pulmonary disease, and recent COVID. 1. Severe shortness of breath.?requiring extra isoUF session 11/11/21 2. End-stage renal disease.? Normally dialyzes Monday, Monday, Monday.? Keep her on that schedule. She has no missed hD sessions, last dialyzed in communited 11/10 prior to presentation. 3. Anemia. 4. Hypertensive crisis.? Blood pressure medications as noted will be continued and we will track her blood pressures. ? Plan: - HD today per [facility] schedule. We will UF 3L plan - Renal diet - Change losartan to 100mg daily - increase amlodipine to 10mg daily - sepsis care as you are. Time Spent With Patient Time: Total time spent is greater than 50% in coordination of care (as documented) at patient's floor/unit and/or counseling patient:
--- NOTE | 2021-11-12 17:17 | HO.PM.IMPN ---
Subjective Subjective Date of Service: 11/13/21 Interval History: seen and examined this AM feels slightly better than yesterday breathing still not at baseline Review of Systems negative except interval history Physical Exam Vital Signs: Vital Signs: Last Vital Signs Temp 98.0 F 11/12/21 12:04 Pulse 88 11/12/21 12:04 Resp 19 11/12/21 12:04 BP 153/67 H 11/12/21 12:04 Pulse Ox 91 L 11/12/21 13:20 O2 Del Method 11/12/21 13:20 O2 Flow Rate 4 11/12/21 13:20 FiO2 30 11/11/21 18:51 Oxygen Flow Rate 30 11/11/21 14:04 BMI result Body Mass Index 22.9 Const: Other: General - no acute distress, appears comfortable Cardiovascular - regular rate and rhythm, S1-S2 Lungs - no respiratory muscle use; scattered coarse sounds Abdomen - soft, nontender, no rebound or guarding Extremities - no edema bilaterally Neuro - awake and alert, no focal deficits Objective Data Active Medications Albuterol Sulfate (Albuterol Sulfate 90 Mcg 8 Gm Inhaler) 2 puff INHALE Q6H PRN PRN Reason: wheezing Amiodarone HCl (Amiodarone Hcl 200 Mg Tablet) 200 mg PO DAILY [facility] Last Admin: 11/12/21 08:40 Dose: 200 mg Documented By: BEL Amlodipine Besylate (Amlodipine Besylate 10 Mg Tablet) 10 mg PO DAILY [facility]; Protocol Atorvastatin Calcium (Atorvastatin Calcium 40 Mg Tablet) 40 mg PO DAILY [facility] Last Admin: 11/12/21 08:41 Dose: 40 mg Documented By: BEL Clopidogrel Bisulfate (Clopidogrel Bisulfate 75 Mg Tablet) 75 mg PO DAILY [facility] Last Admin: 11/12/21 08:42 Dose: 75 mg Documented By: BEL Vancomycin HCl 1,000 mg/ (Sodium Chloride) 270 mls @ 270 mls/hr IV MoWeFr@1800 [facility] Cefepime HCl 1 gm/ Sodium (Chloride) 50 mls @ 100 mls/hr IV Q24H [facility] Levothyroxine Sodium (Levothyroxine Sodium 25 Mcg Tablet) 25 mcg PO DAILY@0600 [facility] Last Admin: 11/12/21 06:28 Dose: 25 mcg Documented By: LISET Lidocaine/Diphenhydr/Alum/Mg/Simeth (Mag&Al/Sim/Diphenhyd/Lidocaine 10 Ml Oral.Susp) 5 ml PO Q4H PRN PRN Reason: Mouth Pain Loratadine (Loratadine 10 Mg Tablet) 10 mg PO DAILY [facility] Last Admin: 11/12/21 08:41 Dose: 10 mg Documented By: BEL Lorazepam (Lorazepam 0.5 Mg Tablet) 0.5 mg PO BID PRN PRN Reason: anxiety Losartan Potassium (Losartan Potassium 50 Mg Tablet) 100 mg PO DAILY [facility]; Protocol Metoprolol Succinate (Metoprolol Succinate Er 25 Mg Tab.Er.24h) 25 mg PO DAILY [facility]; Protocol Last Admin: 11/12/21 08:42 Dose: 25 mg Documented By: BEL Multivitamins/Vitamin C (Multivitamin Tablet) 1 tab PO DAILY [facility] Last Admin: 11/12/21 08:41 Dose: 1 tab Documented By: BEL Non-Formulary Medication (Gqfrkqbqfyq-Rqtftuelr-Llxftrrp [Trelegy Ellipta]) 1 inhalation INHALE DAILY [facility] Ondansetron HCl (Ondansetron Hcl 4 Mg/2 Ml Vial) 4 mg IVPUSH Q8H PRN PRN Reason: Nausea and Vomiting Last Admin: 11/12/21 13:10 Dose: 4 mg Documented By: BEL Oxycodone HCl (Oxycodone Hcl Immed Release 5 Mg Tablet) 5 mg PO Q4H PRN PRN Reason: Pain, Moderate (Pain Scale 4-6 Last Admin: 11/12/21 13:51 Dose: 5 mg Documented By: BEL Pharmacy Consult (Consult Rx Perform Med Rec) 1 each MISCELLANE ONCE PRN PRN Reason: Consult order Pharmacy Consult (Consult Rx Vancomycin Dosing) 1 each MISCELLANE DAILY PRN PRN Reason: Consult order Ropinirole HCl (Ropinirole Hcl 0.25 Mg Tablet) 0.25 mg PO BID [facility] Last Admin: 11/12/21 08:40 Dose: 0.25 mg Documented By: BEL Sevelamer Carbonate (Sevelamer Carbonate Tablet 800 Mg Tablet) 1,600 mg PO QID [facility] Last Admin: 11/12/21 08:41 Dose: 1,600 mg Documented By: BEL Tramadol HCl (Tramadol Hcl 50 Mg Tablet) 25 mg PO Q12H [facility] Last Admin: 11/12/21 08:53 Dose: 25 mg Documented By: BEL Vitamin D (Cholecalciferol (Vitamin D3) 25 Mcg Tablet) 50 mcg PO DAILY [facility] Last Admin: 11/12/21 08:40 Dose: 50 mcg Documented By: BEL Labs CBC & Chem 7: 11/13/21 08:22 11/13/21 08:22 Labs: Laboratory Results - last 24 hr 11/11/21 11/12/21 11/12/21 18:27 08:51 08:51 MCV 99.3 H MCH 32.1 MCHC 32.3 RDW 14.6 Plt Count 138 L MPV 10.1 Absolute Nucleated RBC 0.000 Nucleated RBC % (auto) 0.0 D-Dimer High Sensitivty 1655 Anion Gap Estim Creat Clear Calc Estimated GFR Random Glucose Calcium Ferritin Lactate Dehydrogenase Troponin I High Sens 369.7 H* D C-Reactive Protein Procalcitonin 11/12/21 11/12/21 08:51 08:51 MCV MCH MCHC RDW Plt Count MPV Absolute Nucleated RBC Nucleated RBC % (auto) D-Dimer High Sensitivty Anion Gap 25 H Estim Creat Clear Calc 4.8 Estimated GFR 5 Random Glucose 132 H Calcium 8.1 L D Ferritin 3601 H Lactate Dehydrogenase 205 Troponin I High Sens C-Reactive Protein 41.65 H Procalcitonin 24.85 Assessment and Plan (1) Acute and chronic respiratory failure with hypoxia: Status: Acute Plan This is a 71-year-old female with a past medical history of chronic respiratory failure with hypoxia on home O2, ESRD on dialysis Monday, metastatic renal cell carcinoma on palliative care at home who was diagnosed with COVID on October 31. She presented to [facility] on 11/11/2020 with acute shortness of breath and respiratory distress. She was found to have significantly elevated blood pressures over 200 systolic for urgent dialysis. She was transferred out once improved the same day. 1. Acute on chronic respiratory failure with hypoxia Required brief duration of BiPAP support in the intensive care unit. She is now tolerating her baseline 2. Suspected pneumonia (bacterial) Patient tested positive for COVID on 10/31. During the same time she was being worked up for temporal arteritis and hence was prescribed empiric prednisone 60 mg which she took for 14 days. Now her procalcitonin is significantly increased and I suspect she likely has superimposed bacterial pneumonia On empiric IV cefepime and vancomycin Trend procalcitonin and CBC 3. COVID positive Tested positive more than 2 weeks ago and completed 2 weeks of high-dose steroids for a different reason. Unclear if any benefits for the usual covid treamtents. Will ask ID for input 4. ESRD on HD MWF, continue dialysis per nephrology recs 5. Mestatic Renal Cell Ca on palliative care as oupatient Continue otherbaseline meds as appropriate. DNR/DNI DVT pptx -- heparin Quality Stroke Does the patient have a stroke diagnosis?: No VTE Prior VTE?: No VTE Risk Level:: Medical - low VTE Device Contraindication: N/A - Device Ordered VTE Drug Contraindication: Treatment Not Indicated
[2021-11-12] MEDS: vancomycin HCL 1,250 MG in 0.9 % Sodium Chloride 250 ML 166.67 MG IV (18:33)
[2021-11-12] MEDS: cefEPime HCl 1 GM in 0.9 % Sodium Chloride 50 ML IV (21:28)
[2021-11-13] VITALS (7 sets, daily range): BP systolic 113–142; BP diastolic 48–70; PULSE 82–105; RESP 17–20; TEMP 36.6–37.1; O2SAT 90–98
[2021-11-13] MEDS: oxyCODONE HCl Immed Release 5 MG TABLET PO ×2 (02:50→14:07)
[2021-11-13] MEDS: ondansetron HCL 4 MG/2 ML VIAL IVPUSH (02:51)
[2021-11-13] MEDS: Levothyroxine Sodium 25 MCG TABLET PO (05:51)
[2021-11-13 08:32] LABS: Hematocrit 27.1 % (37.0-47.0); Hemoglobin 8.6 g/dl (12.0-16.0); Mean Corpuscular HGB Conc 31.7 g/dl (31.0-35.0); Mean Corpuscular Hemoglobin 32.2 pg (27.0-33.0); Mean Corpuscular Volume 101.5 fL (80.0-98.0); Mean Platelet Volume 10.6 fL (9.4-12.3); Platelet Count 161 X10*3/uL (160-400); Red Blood Count 2.67 X10*6/uL (4.20-5.50); Red Cell Distribution Width 14.6 % (11.0-16.0); White Blood Count 15.7 X10*3/uL (4.8-10.8)
[2021-11-13] MEDS: Sevelamer Carbonate Tablet 800 MG TABLET 1600 MG PO ×3 (08:36→21:01)
[2021-11-13] MEDS: Metoprolol Succinate ER 25 MG TAB.ER.24H PO (08:38)
[2021-11-13] MEDS: Clopidogrel Bisulfate 75 MG TABLET PO (08:38)
[2021-11-13] MEDS: rOPINIRole HCL 0.25 MG TABLET PO ×2 (08:38→21:01)
[2021-11-13] MEDS: Atorvastatin Calcium 40 MG TABLET PO (08:39)
[2021-11-13] MEDS: amLODIPine Besylate 10 MG TABLET PO (08:39)
[2021-11-13] MEDS: Cholecalciferol (Vitamin D3) 25 MCG TABLET 50 MCG PO (08:39)
[2021-11-13] MEDS: Amiodarone HCL 200 MG TABLET PO (08:39)
[2021-11-13] MEDS: Loratadine 10 MG TABLET PO (08:39)
[2021-11-13] MEDS: Losartan Potassium 50 MG TABLET 100 MG PO (08:39)
[2021-11-13] MEDS: Multivitamin TABLET 1 TAB PO (08:40)
[2021-11-13] MEDS: traMADoL HCL 50 MG TABLET 25 MG PO ×2 (08:41→21:06)
[2021-11-13 09:22] LABS: Anion Gap 25 (12-20); Blood Urea Nitrogen 62 mg/dL (9-16); Calcium 9.2 mg/dL (8.4-10.2); Carbon Dioxide 24 mmol/L (22-29); Chloride 97 mmol/L (96-108); Creatinine Clr Calc Pharmacy 5.8; Estimated Glomerular Filt Rate 6; Glucose Random 100 mg/dL (60-115); Potassium 5.6 mmol/L (3.3-5.1); Sodium 140 mmol/L (135-145)
--- NOTE | 2021-11-13 09:28 | MHC.CM.PN ---
CM attempted to reach Patient at her room Extension [phone] (Covid (+)) but was unable to do so. CM spoke with Daughter/HCP/Carli @ [phone] and addressed IMM with her (original to be mailed certified letter to Carli and a copy has been placed on the chart). Patient lives in an apartment with her Sister and [id number] and she is active with [facility] for O2 and she uses a cane for outdoor travel. Home/resume said services is the goal and WILLI has initiated and will follow for dc planning. Patient receives HD at [facility] and she is Moderna/Covid vax X2. PCP is DR. Natalia Mayer.
[2021-11-13 10:00] LABS: Procalcitonin 58.73 ng/mL
[2021-11-13] MEDS: Heparin Sodium,Porcine 5,000 UNIT/ML VIAL 5000 UNIT SUBCUT ×2 (13:01→23:36)
--- NOTE | 2021-11-13 13:56 | P.PNNP_ITS ---
Subjective Subjective Date of Service: 11/13/21 Interval history: IsoUf on iHD on Monday Resp status and BP better Physical Exam 2 Vital Signs: Vital Signs: Last Vital Signs Temp 98.7 F 11/13/21 11:48 Pulse 97 11/13/21 11:48 Resp 18 11/13/21 11:48 BP 127/60 11/13/21 11:48 Pulse Ox 92 11/13/21 11:48 O2 Del Method 11/13/21 11:48 O2 Flow Rate 6 11/13/21 11:48 FiO2 30 11/11/21 18:51 Oxygen Flow Rate 30 11/11/21 14:04 BMI result Body Mass Index 22.9 Const: General: alert, awake and in distress Chest: Chest palpation & inspection: normal inspection of the chest Resp: Effort & Inspection: Actively coughing and labored Auscultation: rales Cardio: Rate: regular rate GI: Inspection: Yes normal to inspection Palpation (GI): Soft to palpation Extrem: Other: LUE AVF with bruit and thrill. Objective Data Labs CBC & Chem 7: 11/13/21 08:22 11/13/21 08:22 Labs: Laboratory Results - last 24 hr 11/13/21 11/13/21 11/13/21 08:22 08:22 08:22 WBC 15.7 H RBC 2.67 L Hgb 8.6 L Hct 27.1 L MCV 101.5 H MCH 32.2 MCHC 31.7 RDW 14.6 Plt Count 161 MPV 10.6 Absolute Nucleated RBC 0.000 Nucleated RBC % (auto) 0.0 Sodium 140 Potassium 5.6 H Chloride 97 Carbon Dioxide 24 Anion Gap 25 H BUN 62 H Creatinine 6.63 H* Estim Creat Clear Calc 5.8 Estimated GFR 6 Random Glucose 100 Calcium 9.2 D Procalcitonin 58.73 Microbiology Microbiology Results: Microbiology 11/11/21 15:27 Blood - Venous Blood Culture - Preliminary No growth after 24 hours. 11/11/21 15:27 Blood - Venous Blood Culture - Preliminary No growth after 24 hours. Procedures Date of Service Date of Service: 11/13/21 Assessment & Plan Assessment and plan (1) Flash pulmonary edema: Status: Acute (2) Hypertensive urgency: Status: Acute (3) Renal cancer: Status: Acute Plan 71-year-old end-stage renal disease patient admitted with hypertensive crisis and acute pulmonary edema on the backdrop of end-stage renal disease, chronic obstructive pulmonary disease, and recent COVID. 1. Severe shortness of breath.?requiring extra isoUF session 11/11/21 2. End-stage renal disease.? Normally dialyzes Monday, Monday, Monday.? Keep her on that schedule. She has no missed hD sessions, last dialyzed in communited 11/10 prior to presentation. 3. Anemia. 4. Hypertensive crisis.? Blood pressure medications as noted will be continued and we will track her blood pressures. ? Plan: - HD next on [facility] schedule. - Renal diet - C/w losartan 100mg daily - c/w amlodipine to 10mg daily Time Spent With Patient Time: Total time spent is greater than 50% in coordination of care (as documented) at patient's floor/unit and/or counseling patient: Progress Note: Quality Stroke Does the patient have a stroke diagnosis?: No
--- NOTE | 2021-11-13 14:11 | HO.PM.IMPN ---
Subjective Subjective Date of Service: 11/13/21 Interval History: seen and exained this AM feels more tired and sleepy today reports no changes in respiratory status oxygen requirements increasing daughter is bedside -- updates given Review of Systems negative except interval history Physical Exam Vital Signs: Vital Signs: Last Vital Signs Temp 98.7 F 11/13/21 11:48 Pulse 97 11/13/21 11:48 Resp 18 11/13/21 11:48 BP 127/60 11/13/21 11:48 Pulse Ox 92 11/13/21 11:48 O2 Del Method 11/13/21 11:48 O2 Flow Rate 6 11/13/21 11:48 FiO2 30 11/11/21 18:51 Oxygen Flow Rate 30 11/11/21 14:04 BMI result Body Mass Index 22.9 Const: Other: General - no respiratory distress, more somnolent today but arousable Cardiovascular - regular rate and rhythm, S1-S2 Lungs - no respiratory muscle use; son 6L this AM with sats around 90 Abdomen - soft, nontender, no rebound or guarding Extremities - no edema bilaterally Neuro - awake and alert, no focal deficits, moving all 4 limbs Objective Data Active Medications Albuterol Sulfate (Albuterol Sulfate 90 Mcg 8 Gm Inhaler) 2 puff INHALE Q6H PRN PRN Reason: wheezing Amiodarone HCl (Amiodarone Hcl 200 Mg Tablet) 200 mg PO DAILY [facility] Last Admin: 11/13/21 08:39 Dose: 200 mg Documented By: DEVENDRA Amlodipine Besylate (Amlodipine Besylate 10 Mg Tablet) 10 mg PO DAILY [facility]; Protocol Last Admin: 11/13/21 08:39 Dose: 10 mg Documented By: DEVENDRA Atorvastatin Calcium (Atorvastatin Calcium 40 Mg Tablet) 40 mg PO DAILY [facility] Last Admin: 11/13/21 08:39 Dose: 40 mg Documented By: DEVENDRA Clopidogrel Bisulfate (Clopidogrel Bisulfate 75 Mg Tablet) 75 mg PO DAILY [facility] Last Admin: 11/13/21 08:38 Dose: 75 mg Documented By: DEVENDRA Heparin Sodium (Porcine) (Heparin Sodium,Porcine 5,000 Unit/Ml Vial) 5,000 unit SUBCUT Q12H [facility] Last Admin: 11/13/21 13:01 Dose: 5,000 unit Documented By: DEVENDRA Vancomycin HCl 1,000 mg/ (Sodium Chloride) 270 mls @ 270 mls/hr IV MoWeFr@1800 [facility] Cefepime HCl 1 gm/ Sodium (Chloride) 50 mls @ 100 mls/hr IV Q24H [facility] Last Infusion: 11/12/21 22:10 Dose: 0 mls/hr Documented By: CAESAR Levothyroxine Sodium (Levothyroxine Sodium 25 Mcg Tablet) 25 mcg PO DAILY@0600 [facility] Last Admin: 11/13/21 05:51 Dose: 25 mcg Documented By: ANTCIRO Lidocaine/Diphenhydr/Alum/Mg/Simeth (Mag&Al/Sim/Diphenhyd/Lidocaine 10 Ml Oral.Susp) 5 ml PO Q4H PRN PRN Reason: Mouth Pain Loratadine (Loratadine 10 Mg Tablet) 10 mg PO DAILY [facility] Last Admin: 11/13/21 08:39 Dose: 10 mg Documented By: DEVENDRA Lorazepam (Lorazepam 0.5 Mg Tablet) 0.5 mg PO BID PRN PRN Reason: anxiety Losartan Potassium (Losartan Potassium 50 Mg Tablet) 100 mg PO DAILY [facility]; Protocol Last Admin: 11/13/21 08:39 Dose: 100 mg Documented By: DEVENDRA Metoprolol Succinate (Metoprolol Succinate Er 25 Mg Tab.Er.24h) 25 mg PO DAILY [facility]; Protocol Last Admin: 11/13/21 08:38 Dose: 25 mg Documented By: DEVENDRA Multivitamins/Vitamin C (Multivitamin Tablet) 1 tab PO DAILY [facility] Last Admin: 11/13/21 08:40 Dose: 1 tab Documented By: DEVENDRA Non-Formulary Medication (Wmwrzrcwpmf-Pbmypftlj-Tagfdgcz [Trelegy Ellipta]) 1 inhalation INHALE DAILY [facility] Ondansetron HCl (Ondansetron Hcl 4 Mg/2 Ml Vial) 4 mg IVPUSH Q8H PRN PRN Reason: Nausea and Vomiting Last Admin: 11/13/21 02:51 Dose: 4 mg Documented By: FOSVALERIE Oxycodone HCl (Oxycodone Hcl Immed Release 5 Mg Tablet) 5 mg PO Q4H PRN PRN Reason: Pain, Moderate (Pain Scale 4-6 Last Admin: 11/13/21 14:07 Dose: 5 mg Documented By: DEVENDRA Pharmacy Consult (Consult Rx Perform Med Rec) 1 each MISCELLANE ONCE PRN PRN Reason: Consult order Pharmacy Consult (Consult Rx Vancomycin Dosing) 1 each MISCELLANE DAILY PRN PRN Reason: Consult order Ropinirole HCl (Ropinirole Hcl 0.25 Mg Tablet) 0.25 mg PO BID [facility] Last Admin: 11/13/21 08:38 Dose: 0.25 mg Documented By: DEVENDRA Sevelamer Carbonate (Sevelamer Carbonate Tablet 800 Mg Tablet) 1,600 mg PO QID [facility] Last Admin: 11/13/21 13:01 Dose: 1,600 mg Documented By: DEVENDRA Tramadol HCl (Tramadol Hcl 50 Mg Tablet) 25 mg PO Q12H [facility] Last Admin: 11/13/21 08:41 Dose: 25 mg Documented By: DEVENDRA Vitamin D (Cholecalciferol (Vitamin D3) 25 Mcg Tablet) 50 mcg PO DAILY [facility] Last Admin: 11/13/21 08:39 Dose: 50 mcg Documented By: DEVENDRA Labs CBC & Chem 7: 11/13/21 08:22 11/13/21 08:22 Labs: Laboratory Results - last 24 hr 11/13/21 11/13/21 11/13/21 08:22 08:22 08:22 MCV 101.5 H MCH 32.2 MCHC 31.7 RDW 14.6 Plt Count 161 MPV 10.6 Absolute Nucleated RBC 0.000 Nucleated RBC % (auto) 0.0 Anion Gap 25 H Estim Creat Clear Calc 5.8 Estimated GFR 6 Random Glucose 100 Calcium 9.2 D Procalcitonin 58.73 Microbiology Microbiology Results: Microbiology 11/11/21 15:27 Blood Culture - Preliminary Blood - Venous No growth after 24 hours. 11/11/21 15:27 Blood Culture - Preliminary Blood - Venous No growth after 24 hours. Assessment and Plan (1) Acute and chronic respiratory failure with hypoxia: Status: Acute Plan This is a 71-year-old female with a past medical history of chronic respiratory failure with hypoxia on home O2, ESRD on dialysis Monday, metastatic renal cell carcinoma on palliative care at home who was diagnosed with COVID on October 31. She presented to [facility] on 11/11/2020 with acute shortness of breath and respiratory distress. She was found to have significantly elevated blood pressures over 200 systolic for urgent dialysis. She was transferred out once improved the same day. 1. Acute on chronic respiratory failure with hypoxia O2 requirements increasing, now on 6L to maintain sats around 90 2. Suspected pneumonia (bacterial) procalcitonin is significantly elevated continue vancomcyin/cefepime - day #2 f/u clutures 3. COVID positive Tested positive more than 2 weeks ago and completed 2 weeks of high-dose steroids for a different reason (empiric rx for temporal artirits) unclear if she would benefit form any covid therapy given duration of postive test; will ask for ID input continue oxygen 4. ESRD on HD MWF, continue dialysis per nephrology recs 5. Mestatic Renal Cell Ca on palliative care as outpatient Continue otherbaseline meds as appropriate. DNR/DNI DVT pptx -- heparin d/w the daughter Quality Stroke Does the patient have a stroke diagnosis?: No VTE Prior VTE?: No VTE Risk Level:: Medical - low VTE Device Contraindication: N/A - Device Ordered VTE Drug Contraindication: Treatment Not Indicated
[2021-11-13] MEDS: cefEPime HCl 1 GM in 0.9 % Sodium Chloride 50 ML IV (21:05)
--- NOTE | 2021-11-13 23:16 | P.CNID_ITS ---
History of Present Illness Data of Consult Service Date: 11/13/21 Requesting physician: Nani Andrews Primary Care Provider: Natalia Mayer MD HPI Reason for consult: shortness of breath She comes in with two weeks karl puga She has no fever or chills. Review of Systems Review of Systems: Yes all other systems are reviewed and are negative PMFSH Past Medical History Medical History Anemia Blood D-dimer assay positive COPD (chronic obstructive pulmonary disease) Dyspnea ESRD (end stage renal disease) on dialysis Pleural effusion Renal cell cancer Social History Social History Household Members: Family and None Housing: House Do you presently have visiting nurse or other home services: Yes Patient Tobacco Use Status: Former Tobacco user Tobacco use type: Cigarette Years Smoked: 30 years Smoked in Last 30 Days: No Use of substances other than those prescribed or required for medical reasons: No Currently Displaying Signs/Symptoms of Drug Intoxication Withdrawal: No Advance Directives: No Advance Directives Information Provided: No Advance Directives on File: No Do you have thoughts of harming others: None Recently lost weight without trying: No Nutrition Risks: No Nutritional Risk Patient : No : No Poor oral hygiene: No service: No Current occupational status: retired Meds Allergies Allergy/AdvReac Type Severity Reaction Status Date / Time erythromycin base Allergy Severe GI Upset Verified 10/12/21 11:05 trazodone Allergy Severe Constipatio Verified 10/12/21 11:05 n Penicillins [PENICILLINS] Allergy Intermediate RASH Unverified 10/12/21 11:05 Active Medications: Current Medications Albuterol Sulfate (Albuterol Sulfate 90 Mcg 8 Gm Inhaler) 2 puff INHALE Q6H PRN PRN Reason: wheezing Amiodarone HCl (Amiodarone Hcl 200 Mg Tablet) 200 mg PO DAILY [facility] Last Admin: 11/13/21 08:39 Dose: 200 mg Amlodipine Besylate (Amlodipine Besylate 10 Mg Tablet) 10 mg PO DAILY [facility]EL[facility]; Protocol Last Admin: 11/13/21 08:39 Dose: 10 mg Atorvastatin Calcium (Atorvastatin Calcium 40 Mg Tablet) 40 mg PO DAILY [facility] Last Admin: 11/13/21 08:39 Dose: 40 mg Clopidogrel Bisulfate (Clopidogrel Bisulfate 75 Mg Tablet) 75 mg PO DAILY [facility] Last Admin: 11/13/21 08:38 Dose: 75 mg Heparin Sodium (Porcine) (Heparin Sodium,Porcine 5,000 Unit/Ml Vial) 5,000 unit SUBCUT Q12H [facility] Last Admin: 11/13/21 13:01 Dose: 5,000 unit Vancomycin HCl 1,000 mg/ (Sodium Chloride) 270 mls @ 270 mls/hr IV MoWeFr@1800 [facility] Cefepime HCl 1 gm/ Sodium (Chloride) 50 mls @ 100 mls/hr IV Q24H [facility] Last Infusion: 11/13/21 21:40 Dose: Infused Levothyroxine Sodium (Levothyroxine Sodium 25 Mcg Tablet) 25 mcg PO DAILY@0600 [facility] Last Admin: 11/13/21 05:51 Dose: 25 mcg Lidocaine/Diphenhydr/Alum/Mg/Simeth (Mag&Al/Sim/Diphenhyd/Lidocaine 10 Ml Oral.Susp) 5 ml PO Q4H PRN PRN Reason: Mouth Pain Loratadine (Loratadine 10 Mg Tablet) 10 mg PO DAILY [facility] Last Admin: 11/13/21 08:39 Dose: 10 mg Lorazepam (Lorazepam 0.5 Mg Tablet) 0.5 mg PO BID PRN PRN Reason: anxiety Losartan Potassium (Losartan Potassium 50 Mg Tablet) 100 mg PO DAILY [facility]; Protocol Last Admin: 11/13/21 08:39 Dose: 100 mg Metoprolol Succinate (Metoprolol Succinate Er 25 Mg Tab.Er.24h) 25 mg PO DAILY [facility]; Protocol Last Admin: 11/13/21 08:38 Dose: 25 mg Multivitamins/Vitamin C (Multivitamin Tablet) 1 tab PO DAILY [facility] Last Admin: 11/13/21 08:40 Dose: 1 tab Non-Formulary Medication (Jpfbqublzqj-Eelwitsaf-Bllwrcac [Trelegy Ellipta]) 1 inhalation INHALE DAILY [facility] Ondansetron HCl (Ondansetron Hcl 4 Mg/2 Ml Vial) 4 mg IVPUSH Q8H PRN PRN Reason: Nausea and Vomiting Last Admin: 11/13/21 02:51 Dose: 4 mg Oxycodone HCl (Oxycodone Hcl Immed Release 5 Mg Tablet) 5 mg PO Q4H PRN PRN Reason: Pain, Moderate (Pain Scale 4-6 Last Admin: 11/13/21 14:07 Dose: 5 mg Pharmacy Consult (Consult Rx Perform Med Rec) 1 each MISCELLANE ONCE PRN PRN Reason: Consult order Pharmacy Consult (Consult Rx Vancomycin Dosing) 1 each MISCELLANE DAILY PRN PRN Reason: Consult order Ropinirole HCl (Ropinirole Hcl 0.25 Mg Tablet) 0.25 mg PO BID [facility] Last Admin: 11/13/21 21:01 Dose: 0.25 mg Sevelamer Carbonate (Sevelamer Carbonate Tablet 800 Mg Tablet) 1,600 mg PO QID [facility] Last Admin: 11/13/21 21:01 Dose: 1,600 mg Tramadol HCl (Tramadol Hcl 50 Mg Tablet) 25 mg PO Q12H [facility] Last Admin: 11/13/21 21:06 Dose: 25 mg Vitamin D (Cholecalciferol (Vitamin D3) 25 Mcg Tablet) 50 mcg PO DAILY [facility] Last Admin: 11/13/21 08:39 Dose: 50 mcg Home Medications Medication Instructions Recorded Confirmed Last Taken Type albuterol sulfate 90 mcg/actuation 2 puff inhalation Q6H PRN wheezing 04/05/21 11/11/21 Unknown History aerosol inhaler amiodarone 200 mg tablet 200 mg PO DAILY 04/05/21 11/11/21 Unknown History cetirizine 10 mg tablet 10 mg PO DAILY 04/05/21 11/11/21 Unknown History cholecalciferol (vitamin D3) 50 50 mcg PO DAILY 04/05/21 11/11/21 Unknown History mcg (2,000 unit) tablet clopidogrel 75 mg tablet 75 mg PO DAILY 04/05/21 11/11/21 Unknown History levothyroxine 25 mcg tablet 25 mcg PO DAILY 04/05/21 11/11/21 Unknown History losartan 50 mg tablet 50 mg PO BID 04/05/21 11/11/21 Unknown History metoprolol succinate 25 mg 25 mg PO DAILY 04/05/21 11/11/21 Unknown History tablet,extended release 24 hr norflurane-pentafluoropropane 1 spray topical ONCE 04/05/21 11/11/21 Unknown History topical spray (Pain Ease Medium [place]) sevelamer carbonate 800 mg tablet 1,600 mg PO QID 04/05/21 11/11/21 Unknown History vitamin B complex-vitamin C-folic 1 tab PO DAILY 04/05/21 11/11/21 Unknown History acid 0.8 mg tablet (Jackie-Kami) lorazepam 0.5 mg tablet 0.5 mg PO BID PRN anxiety 05/18/21 11/11/21 Unknown History oxycodone 5 mg tablet 5 mg PO Q4H PRN pain 05/18/21 11/11/21 Unknown History tramadol 50 mg tablet 25 mg PO Q12H 08/23/21 11/11/21 Unknown History ropinirole 0.25 mg tablet 0.25 mg PO BID 09/16/21 11/11/21 Unknown History atorvastatin 40 mg tablet 40 mg PO DAILY 10/12/21 11/11/21 Unknown History amlodipine 5 mg tablet 1 tab PO DAILY 11/11/21 11/11/21 Unknown History lidocaine HCl 2 % mucosal solution 5 ml mucous membrane Q4H PRN Mouth 11/11/21 11/11/21 Unknown History (Lidocaine Viscous) Pain vitamin B complex-vitamin C-folic 1 tab PO DAILY 11/11/21 11/11/21 Unknown History acid 0.8 mg tablet (Jackie-Kami) Physical Exam Vital Signs: Vital Signs: Last Vital Signs Temp 97.8 F 11/13/21 20:00 Pulse 82 11/13/21 20:00 Resp 17 11/13/21 20:00 BP 142/59 H 11/13/21 20:00 Pulse Ox 92 11/13/21 20:00 O2 Del Method 11/13/21 20:00 O2 Flow Rate 6 11/13/21 20:00 FiO2 30 11/11/21 18:51 Oxygen Flow Rate 30 11/11/21 14:04 BMI result Body Mass Index 22.9 Const: General: cooperative HEENT: Head: Yes normal to inspection Face and sinus: Yes normal facial exam Mouth: Normal oral and palatal mucosa present Teeth and gingiva: dentition normal Eyes: General: appearance normal, both eyes and all related structures Pupils: Equal, round and reactive pupils present Resp: Effort & Inspection: normal respiratory effort Cardio: Rate: regular rate Rhythm: regular rhythm GI: Palpation (GI): Soft to palpation and nontender : General: Yes no CVA tenderness Back/Spine/Pelvis: Back: no CVA tenderness Skin: General skin exam: no rashes or lesions noted Neuro: General: moves all extremities Cranial nerves: Yes Equal, round and reactive pupils present Extrem: General: Yes normal to inspection Psych: Appearance: grossly normal Results Labs CBC & Chem 7: 11/13/21 08:22 11/13/21 08:22 Labs: Short CBC 11/13/21 Range/Units 08:22 WBC 15.7 H (4.8-10.8) X10*3/uL Hgb 8.6 L (12.0-16.0) g/dl Hct 27.1 L (37.0-47.0) % Plt Count 161 (160-400) X10*3/uL BMP 11/13/21 08:22 Sodium 140 Potassium 5.6 H Chloride 97 Carbon Dioxide 24 BUN 62 H Creatinine 6.63 H* Calcium 9.2 D Microbiology Microbiology Results: Microbiology 11/11/21 15:27 Blood - Venous Blood Culture - Preliminary No growth after 48 hours. 11/11/21 15:27 Blood - Venous Blood Culture - Preliminary No growth after 48 hours. Assessment and Plan (1) ESRD (end stage renal disease) on dialysis: Status: Acute (2) Acute and chronic respiratory failure with hypoxia: Status: Acute She had COVID 13 days ago,too late to treat She has pleural effusion,pneumonia possible postviral Pseudomonas or staph Plan Cefepime 5-7d Stop Vancomycin if MRSA nares negative.
[2021-11-14] VITALS (7 sets, daily range): BP systolic 94–160; BP diastolic 41–70; PULSE 87–194; RESP 18–20; TEMP 36.5–37.2; O2SAT 93–100
[2021-11-14] MEDS: Haloperidol Lactate 5 MG/ML VIAL 2.5 MG IVPUSH (03:28)
--- NOTE | 2021-11-14 03:36 | MHC.PIE ---
p; pt notied with increasing anxiety and confusion. pt found trying to get out of bed and pulling off oxygen mask. pt unable to follow orders and unsafe for po medications at this time. (prn ativan) i; dr arias notifed; new order haldol iv now. camera placed in room e; will cont to monitor
[2021-11-14] MEDS: Levothyroxine Sodium 25 MCG TABLET PO (05:38)
--- NOTE | 2021-11-14 08:49 | HO.PM.IMPN ---
Subjective Subjective Date of Service: 11/14/21 Interval History: seen and examined this AM more alert compared to yesterday but appears confused, reports not feeling well Review of Systems unable to assess Physical Exam Vital Signs: Vital Signs: Last Vital Signs Temp 98.6 F 11/14/21 04:00 Pulse 194 H 11/14/21 04:00 Resp 20 11/14/21 04:00 BP 140/65 H 11/14/21 04:00 Pulse Ox 99 11/14/21 04:00 O2 Del Method 11/14/21 04:00 O2 Flow Rate 6 11/14/21 04:00 FiO2 30 11/11/21 18:51 Oxygen Flow Rate 30 11/11/21 14:04 BMI result Body Mass Index 22.9 Const: Other: General - more alert compared to yesterday, does not know where she is Cardiovascular - regular rate and rhythm, S1-S2 Lungs - no accessory muscle useage Abdomen - soft, nontender, no rebound or guarding Extremities - no edema bilaterally Neuro - moves all 4 limbs spontaneously but not upon command; pupils equal and reactive; no obvious facial asymmetry Objective Data Active Medications Albuterol Sulfate (Albuterol Sulfate 90 Mcg 8 Gm Inhaler) 2 puff INHALE Q6H PRN PRN Reason: wheezing Amiodarone HCl (Amiodarone Hcl 200 Mg Tablet) 200 mg PO DAILY [facility] Last Admin: 11/13/21 08:39 Dose: 200 mg Documented By: DEVENDRA Amlodipine Besylate (Amlodipine Besylate 10 Mg Tablet) 10 mg PO DAILY [facility]; Protocol Last Admin: 11/13/21 08:39 Dose: 10 mg Documented By: DEVENDRA Atorvastatin Calcium (Atorvastatin Calcium 40 Mg Tablet) 40 mg PO DAILY [facility] Last Admin: 11/13/21 08:39 Dose: 40 mg Documented By: DEVENDRA Clopidogrel Bisulfate (Clopidogrel Bisulfate 75 Mg Tablet) 75 mg PO DAILY [facility] Last Admin: 11/13/21 08:38 Dose: 75 mg Documented By: DEVENDRA Heparin Sodium (Porcine) (Heparin Sodium,Porcine 5,000 Unit/Ml Vial) 5,000 unit SUBCUT Q12H [facility] Last Admin: 11/13/21 23:36 Dose: 5,000 unit Documented By: MARNI Vancomycin HCl 1,000 mg/ (Sodium Chloride) 270 mls @ 270 mls/hr IV MoWeFr@1800 [facility] Cefepime HCl 1 gm/ Sodium (Chloride) 50 mls @ 100 mls/hr IV Q24H [facility] Last Infusion: 11/13/21 21:40 Dose: 0 mls/hr Documented By: MARNI Levothyroxine Sodium (Levothyroxine Sodium 25 Mcg Tablet) 25 mcg PO DAILY@0600 [facility] Last Admin: 11/14/21 05:38 Dose: 25 mcg Documented By: MARNI Lidocaine/Diphenhydr/Alum/Mg/Simeth (Mag&Al/Sim/Diphenhyd/Lidocaine 10 Ml Oral.Susp) 5 ml PO Q4H PRN PRN Reason: Mouth Pain Loratadine (Loratadine 10 Mg Tablet) 10 mg PO DAILY [facility] Last Admin: 11/13/21 08:39 Dose: 10 mg Documented By: DEVENDRA Lorazepam (Lorazepam 0.5 Mg Tablet) 0.5 mg PO BID PRN PRN Reason: anxiety Losartan Potassium (Losartan Potassium 50 Mg Tablet) 100 mg PO DAILY [facility]; Protocol Last Admin: 11/13/21 08:39 Dose: 100 mg Documented By: DEVENDRA Metoprolol Succinate (Metoprolol Succinate Er 25 Mg Tab.Er.24h) 25 mg PO DAILY [facility]; Protocol Last Admin: 11/13/21 08:38 Dose: 25 mg Documented By: DEVENDRA Multivitamins/Vitamin C (Multivitamin Tablet) 1 tab PO DAILY [facility] Last Admin: 11/13/21 08:40 Dose: 1 tab Documented By: DEVENDRA Non-Formulary Medication (Wpqrlhohfou-Hrpwndpen-Fwiacvww [Trelegy Ellipta]) 1 inhalation INHALE DAILY [facility] Ondansetron HCl (Ondansetron Hcl 4 Mg/2 Ml Vial) 4 mg IVPUSH Q8H PRN PRN Reason: Nausea and Vomiting Last Admin: 11/13/21 02:51 Dose: 4 mg Documented By: VICKY Oxycodone HCl (Oxycodone Hcl Immed Release 5 Mg Tablet) 5 mg PO Q4H PRN PRN Reason: Pain, Moderate (Pain Scale 4-6 Last Admin: 11/13/21 14:07 Dose: 5 mg Documented By: DEVENDRA Pharmacy Consult (Consult Rx Perform Med Rec) 1 each MISCELLANE ONCE PRN PRN Reason: Consult order Pharmacy Consult (Consult Rx Vancomycin Dosing) 1 each MISCELLANE DAILY PRN PRN Reason: Consult order Ropinirole HCl (Ropinirole Hcl 0.25 Mg Tablet) 0.25 mg PO BID [facility] Last Admin: 11/13/21 21:01 Dose: 0.25 mg Documented By: MARNI Sevelamer Carbonate (Sevelamer Carbonate Tablet 800 Mg Tablet) 1,600 mg PO QID [facility] Last Admin: 11/13/21 21:01 Dose: 1,600 mg Documented By: MARNI Tramadol HCl (Tramadol Hcl 50 Mg Tablet) 25 mg PO Q12H [facility] Last Admin: 11/13/21 21:06 Dose: 25 mg Documented By: MARNI Vitamin D (Cholecalciferol (Vitamin D3) 25 Mcg Tablet) 50 mcg PO DAILY [facility] Last Admin: 11/13/21 08:39 Dose: 50 mcg Documented By: DEVENDRA Labs CBC & Chem 7: 11/13/21 08:22 11/13/21 08:22 Labs: Laboratory Results - last 24 hr 11/13/21 11/13/21 08:22 08:22 Anion Gap 25 H Estim Creat Clear Calc 5.8 Estimated GFR 6 Random Glucose 100 Calcium 9.2 D Procalcitonin 58.73 Microbiology Microbiology Results: Microbiology 11/11/21 15:27 Blood Culture - Preliminary Blood - Venous No growth after 48 hours. 11/11/21 15:27 Blood Culture - Preliminary Blood - Venous No growth after 48 hours. Assessment and Plan (1) Acute and chronic respiratory failure with hypoxia: Status: Acute Plan This is a 71-year-old female with a past medical history of chronic respiratory failure with hypoxia on home O2, ESRD on dialysis Monday, metastatic renal cell carcinoma on palliative care at home who was diagnosed with COVID on October 31. She [facility] [place] [facility] [place] with acute shortness of breath and respiratory distress. She was found to have significantly elevated blood pressures over 200 systolic for urgent dialysis. She was transferred out once improved the same day. 1. Acute Encephalopathy check ABG and CT head stat 2. Acute on chronic respiratory failure with hypoxia continue O2 -- goal 90-92 wean as tolerated 3. Suspected pneumonia (bacterial) procalcitonin is significantly elevated continue vancomcyin/cefepime - day #2 ID input appreciated -- d/c vancomcyin if nasal MRSA negative 4. COVID positive Tested positive more than 2 weeks ago and completed 2 weeks of high-dose steroids for a different reason (empiric rx for temporal artirits) ID input appreciated 5. ESRD on HD MWF, continue dialysis per nephrology recs 6. Mestatic Renal Cell Ca on palliative care as outpatient Continue other baseline meds as appropriate. DNR/DNI DVT pptx -- heparin Quality Stroke Does the patient have a stroke diagnosis?: No VTE Prior VTE?: No VTE Risk Level:: Medical - low VTE Device Contraindication: N/A - Device Ordered VTE Drug Contraindication: Treatment Not Indicated
[2021-11-14 09:38] LABS: ABG Base Excess -4.7 mmol/L; ABG HCO3 21 mmol/L (22-26); ABG pCO2 44 mmHg (32-45); ABG pH 7.28 (7.35-7.45); ABG pO2 166 mmHg (83-108)
[2021-11-14 10:50] LABS: ABG Refer to POC result
--- NOTE | 2021-11-14 11:17 | PM.EVENT ---
Event Note Date of Service: 11/14/21 Event Note: CT brain showing findings concerning for an evolving acute infarct of the left occipital lobe. There is also a age indeterminate hypodensity involving the right caudate D/w the patietnts daughter bedside. Options of proceeding with further work up for CVA vs conservative care vs comfort care discussed. At this time IA have informed her that I would not proceed with any further workup for the stroke due to her baseline metastatic cancer. However I also told her that it is too early in the process for me to recommend comfort care. I did let her know that over the next 24-48 hours if she continues to decline at that point I may recommend comfort care. Will make NPO for now Hold off on further testing and neurology consult, PT/OT. Will get speech to see her.
--- NOTE | 2021-11-14 13:38 | PM.PNNEP ---
Subjective Subjective Date of Service: 11/14/21 Interval history: Left occipital infarct Physical Exam Vital Signs: Vital Signs: Last Vital Signs Temp 98.2 F 11/14/21 12:00 Pulse 95 11/14/21 12:00 Resp 20 11/14/21 12:00 BP 100/51 L 11/14/21 12:00 Pulse Ox 97 11/14/21 12:00 O2 Del Method 11/14/21 12:00 O2 Flow Rate 3 11/14/21 12:00 FiO2 30 11/11/21 18:51 Oxygen Flow Rate 30 11/11/21 14:04 BMI result Body Mass Index 22.9 Const: General: awake Chest: Chest palpation & inspection: normal inspection of the chest Resp: Effort & Inspection: Actively coughing and labored Auscultation: rales Cardio: Rate: regular rate GI: Inspection: Yes normal to inspection Palpation (GI): Soft to palpation Extrem: Other: LUE AVF with bruit and thrill. Objective Data Labs CBC & Chem 7: 11/13/21 08:22 11/13/21 08:22 Labs: Laboratory Results - last 24 hr 11/14/21 09:34 O2 Saturation 99.0 ABG pH at Pt Temp 7.28 L ABG pCO2 at Pt Temp 44 ABG pO2 at Pt Temp 166 H ABG HCO3 21 L ABG Base Excess (Actual) -4.7 Microbiology Microbiology Results: Microbiology 11/11/21 15:27 Blood - Venous Blood Culture - Preliminary No growth after 48 hours. 11/11/21 15:27 Blood - Venous Blood Culture - Preliminary No growth after 48 hours. Procedures Date of Service Date of Service: 11/14/21 Assessment & Plan Assessment and plan (1) Flash pulmonary edema: Status: Acute (2) Hypertensive urgency: Status: Acute (3) Renal cancer: Status: Acute Plan 71-year-old end-stage renal disease patient admitted with hypertensive crisis and acute pulmonary edema on the backdrop of end-stage renal disease, chronic obstructive pulmonary disease, and recent COVID. 1. Severe shortness of breath.?requiring extra isoUF session 11/11/21 2. End-stage renal disease.? Normally dialyzes Monday, Monday, Monday.? Keep her on that schedule. She has no missed hD sessions, last dialyzed in communited 7/13 prior to presentation. 3. Anemia. 4. Hypertensive crisis.? BP now well controlled on med titration. 120-140s. ? 5. Evolving occipital stroke will be mindful of BPs not to drop perfusion too low, Plan: - HD next on MWF schedule. Will dialyze not to drop BP <120 systolic given CVA - Renal diet - C/w losartan 100mg daily - c/w amlodipine to 10mg daily Time Spent With Patient Time: Total time spent is greater than 50% in coordination of care (as documented) at patient's floor/unit and/or counseling patient: Progress Note: Quality Stroke Does the patient have a stroke diagnosis?: No
[2021-11-14] MEDS: diazePAM 10 MG/2 ML CARTRIDGE 5 MG IVPUSH ×2 (15:38→20:45)
[2021-11-14] MEDS: cefEPime HCl 1 GM in 0.9 % Sodium Chloride 50 ML IV (22:01)
[2021-11-15] VITALS (7 sets, daily range): BP systolic 128–142; BP diastolic 60–65; PULSE 90–93; RESP 14–22; TEMP 36.3–36.8; O2SAT 93–96
[2021-11-15] MEDS: Heparin Sodium,Porcine 5,000 UNIT/ML VIAL 5000 UNIT SUBCUT (00:29)
[2021-11-15] MEDS: Haloperidol Lactate 5 MG/ML VIAL 2.5 MG IVPUSH (00:29)
--- NOTE | 2021-11-15 09:35 | P.CONPL_ITS ---
History of Present Illness History of Present Illness Consult date: 11/15/21 Chief complaint: Acute Respiratory Failure Narrative: This is an inpatient pulmonary consultation. The patient is a a 71 yo female with PMHx of O2 dependent COPD on 1L NC at home; ESRD on HD M/W/F via left arm AVF; metastatic renal cell carcinoma with pulmonary metastasis (s/p wedge resection 2020) & malignant pleural effusion, s/p chemo & Ketruda, and anemia.? She is on palliative care at home, and has DNR/DNI status.?Her COVID swab did come back positive.? The patient became symptomatic for COVID-19 on October 31, tested positive 2 days later, and did her home quarantine. She developed the worsening SOB x 5 days. ?She last got a full session of dialysis yesterday. She has been using her inhalers and nebulizers without improvement. ?She increased her oxygen yesterday from 1L to 2L NC. ?She reports feeling warm but did not check her temperature. She has a nonproductive cough. On arrival to the ED, patient was in moderate respiratory distress with increased work of breathing and accessory muscle use.? On 40% FiO2, RR was 30, Sat 100%, HR 100, initial BP 248/104, afebrile.? She had JVD, and diffuse rales and crackles throughout the lungs.? There was no lower extremity edema.? Chest x-ray showed bilateral pulmonary infiltrates consistent with multilobar pneumonia. ED labs notable for a white count of 16, hemoglobin 8.9, BUN/creatinine 49/6.0, bicarb 25, potassium 4.8, lactic acid 1.0, troponin 92 which evans to 176, BNP 1702.? Venous blood gas showed 7.37/41/0.? COVID swab was positive. She was put on CPAP, blood cultures were drawn and she was given antibiotics.? During the hospital course she had a CVA and altered mentation. She had a CT brain with a left hemispheric infarct, but also a right sided hypodensity ?metastatic disease. I evaluated the patient and she was somnolent on the oxymask. In view of her comorbidities and poor prognosis I spoke to the daughter about considering a Comfort Measures Only code status. I answered all her questions. She will be talking to her hospital doctor to make a change on her code status. Review of Systems Review of Systems: Yes Unobtainable due to mental condition and Unobtainable due to mental status REPLACED BY [facility] Past Medical History Medical History (Updated 11/15/21 @ 09:45 by Alok Callejas MD) Anemia Blood D-dimer assay positive COPD (chronic obstructive pulmonary disease) CVA (cerebral vascular accident) Dyspnea ESRD (end stage renal disease) on dialysis Pleural effusion Renal cell cancer Social History Social History Household Members: Family and None Housing: House Do you presently have visiting nurse or other home services: Yes Patient Tobacco Use Status: Former Tobacco user Tobacco use type: Cigarette Years Smoked: 30 years Smoked in Last 30 Days: No Use of substances other than those prescribed or required for medical reasons: No Currently Displaying Signs/Symptoms of Drug Intoxication Withdrawal: No Advance Directives: No Advance Directives Information Provided: No Advance Directives on File: No Do you have thoughts of harming others: None Recently lost weight without trying: No Nutrition Risks: No Nutritional Risk Patient : No : No Poor oral hygiene: No service: No Current occupational status: retired [employer] Allergies Allergy/AdvReac Type Severity Reaction Status Date / Time erythromycin base Allergy Severe GI Upset Verified 10/12/21 11:05 trazodone Allergy Severe Constipatio Verified 10/12/21 11:05 n Penicillins [PENICILLINS] Allergy Intermediate RASH Unverified 10/12/21 11:05 Active Medications: Current Medications Albuterol Sulfate (Albuterol Sulfate 90 Mcg 8 Gm Inhaler) 2 puff INHALE Q6H PRN PRN Reason: wheezing Amiodarone HCl (Amiodarone Hcl 200 Mg Tablet) 200 mg PO DAILY [facility] Last Admin: 11/14/21 09:40 Dose: Not Given Amlodipine Besylate (Amlodipine Besylate 10 Mg Tablet) 10 mg PO DAILY [facility]; Protocol Last Admin: 11/14/21 09:40 Dose: Not Given Atorvastatin Calcium (Atorvastatin Calcium 40 Mg Tablet) 40 mg PO DAILY [facility] Last Admin: 11/14/21 09:40 Dose: Not Given Clopidogrel Bisulfate (Clopidogrel Bisulfate 75 Mg Tablet) 75 mg PO DAILY [facility] Last Admin: 11/14/21 09:40 Dose: Not Given Heparin Sodium (Porcine) (Heparin Sodium,Porcine 5,000 Unit/Ml Vial) 5,000 unit SUBCUT Q12H [facility] Last Admin: 11/15/21 00:29 Dose: 5,000 unit Vancomycin HCl 1,000 mg/ (Sodium Chloride) 270 mls @ 270 mls/hr IV MoWeFr@1800 [facility] Cefepime HCl 1 gm/ Sodium (Chloride) 50 mls @ 100 mls/hr IV Q24H [facility] Last Infusion: 11/14/21 22:50 Dose: Infused Levothyroxine Sodium (Levothyroxine Sodium 25 Mcg Tablet) 25 mcg PO DAILY@0600 [facility] Last Admin: 11/15/21 05:54 Dose: Not Given Lidocaine/Diphenhydr/Alum/Mg/Simeth (Mag&Al/Sim/Diphenhyd/Lidocaine 10 Ml Oral.Susp) 5 ml PO Q4H PRN PRN Reason: Mouth Pain Loratadine (Loratadine 10 Mg Tablet) 10 mg PO DAILY [facility] Last Admin: 11/14/21 09:40 Dose: Not Given Losartan Potassium (Losartan Potassium 50 Mg Tablet) 100 mg PO DAILY [facility]; Protocol Last Admin: 11/14/21 09:41 Dose: Not Given Metoprolol Succinate (Metoprolol Succinate Er 25 Mg Tab.Er.24h) 25 mg PO DAILY [facility]; Protocol Last Admin: 11/14/21 09:41 Dose: Not Given Multivitamins/Vitamin C (Multivitamin Tablet) 1 tab PO DAILY [facility] Last Admin: 11/14/21 09:41 Dose: Not Given Non-Formulary Medication (Znnjyvxttgf-Dhbjxiihj-Dspeblfv [Trelegy Ellipta]) 1 inhalation INHALE DAILY [facility] Ondansetron HCl (Ondansetron Hcl 4 Mg/2 Ml Vial) 4 mg IVPUSH Q8H PRN PRN Reason: Nausea and Vomiting Last Admin: 11/13/21 02:51 Dose: 4 mg Oxycodone HCl (Oxycodone Hcl Immed Release 5 Mg Tablet) 5 mg PO Q4H PRN PRN Reason: Pain, Moderate (Pain Scale 4-6 Last Admin: 11/13/21 14:07 Dose: 5 mg Pharmacy Consult (Consult Rx Perform Med Rec) 1 each MISCELLANE ONCE PRN PRN Reason: Consult order Pharmacy Consult (Consult Rx Vancomycin Dosing) 1 each MISCELLANE DAILY PRN PRN Reason: Consult order Ropinirole HCl (Ropinirole Hcl 0.25 Mg Tablet) 0.25 mg PO BID [facility] Last Admin: 11/14/21 20:13 Dose: Not Given Sevelamer Carbonate (Sevelamer Carbonate Tablet 800 Mg Tablet) 1,600 mg PO QID [facility] Last Admin: 11/14/21 20:13 Dose: Not Given Tramadol HCl (Tramadol Hcl 50 Mg Tablet) 25 mg PO Q12H [facility] Last Admin: 11/14/21 20:13 Dose: Not Given Vitamin D (Cholecalciferol (Vitamin D3) 25 Mcg Tablet) 50 mcg PO DAILY [facility] Last Admin: 11/14/21 09:40 Dose: Not Given Home Medications Medication Instructions Recorded Confirmed Last Taken Type albuterol sulfate 90 mcg/actuation 2 puff inhalation Q6H PRN wheezing 04/05/21 11/11/21 Unknown History aerosol inhaler amiodarone 200 mg tablet 200 mg PO DAILY 04/05/21 11/11/21 Unknown History cetirizine 10 mg tablet 10 mg PO DAILY 04/05/21 11/11/21 Unknown History cholecalciferol (vitamin D3) 50 50 mcg PO DAILY 04/05/21 11/11/21 Unknown History mcg (2,000 unit) tablet clopidogrel 75 mg tablet 75 mg PO DAILY 04/05/21 11/11/21 Unknown History levothyroxine 25 mcg tablet 25 mcg PO DAILY 04/05/21 11/11/21 Unknown History losartan 50 mg tablet 50 mg PO BID 04/05/21 11/11/21 Unknown History metoprolol succinate 25 mg 25 mg PO DAILY 04/05/21 11/11/21 Unknown History tablet,extended release 24 hr norflurane-pentafluoropropane 1 spray topical ONCE 04/05/21 11/11/21 Unknown History topical spray (Pain Ease Medium [place]) sevelamer carbonate 800 mg tablet 1,600 mg PO QID 04/05/21 11/11/21 Unknown History vitamin B complex-vitamin C-folic 1 tab PO DAILY 04/05/21 11/11/21 Unknown History acid 0.8 mg tablet (Jackie-Kami) lorazepam 0.5 mg tablet 0.5 mg PO BID PRN anxiety 05/18/21 11/11/21 Unknown History oxycodone 5 mg tablet 5 mg PO Q4H PRN pain 05/18/21 11/11/21 Unknown History tramadol 50 mg tablet 25 mg PO Q12H 04/25/22 07/14/22 Unknown History ropinirole 0.25 mg tablet 0.25 mg PO BID 09/16/21 11/11/21 Unknown History atorvastatin 40 mg tablet 40 mg PO DAILY 10/12/21 11/11/21 Unknown History amlodipine 5 mg tablet 1 tab PO DAILY 11/11/21 11/11/21 Unknown History lidocaine HCl 2 % mucosal solution 5 ml mucous membrane Q4H PRN Mouth 11/11/21 11/11/21 Unknown History (Lidocaine Viscous) Pain vitamin B complex-vitamin C-folic 1 tab PO DAILY 11/11/21 11/11/21 Unknown History acid 0.8 mg tablet (Jackie-Kami) Physical Exam Vital Signs: Vital Signs: Last Vital Signs Temp 98.3 F 11/15/21 07:47 Pulse 90 11/15/21 07:47 Resp 16 11/15/21 07:47 BP 142/65 H 11/15/21 07:47 Pulse Ox 95 11/15/21 07:47 O2 Del Method 11/15/21 07:47 O2 Flow Rate 2 11/15/21 07:47 FiO2 30 11/11/21 18:51 Oxygen Flow Rate 30 11/11/21 14:04 BMI result Body Mass Index 22.9 Const: General: patient obtunded Orientation/consciousness: patient o btunded Eyes: Alignment and Position: position abnormal bilateral (closed) Neck: Neck: Yes supple Chest: Chest palpation & inspection: normal inspection of the chest Resp: Effort & Inspection: decreased respiratory effort Auscultation: diminished lung sounds Cardio: Heart sounds: S1 normal heart sound present and S2 normal heart sound present GI: Inspection: Yes normal to inspection Skin: General skin exam: no rashes or lesions noted Neuro: General: patient obtunded Results Laboratory Findings CBC and BMP: 11/13/21 08:22 11/13/21 08:22 Abnormal lab findings: Abnormal Labs 11/11/21 11/11/21 11/11/21 12:19 12:19 12:19 WBC 16.0 H RBC 2.78 L Hgb 8.9 L Hct 27.9 L MCV 100.4 H Plt Count 139 L D Immature Gran % (Auto) 1.9 H Neut % (Auto) 94.8 H Lymph % (Auto) 0.8 L Lymph # (Auto) 0.1 L Abs Immat Gran (auto) 0.30 H Absolute Neuts (auto) 15.2 H ABG pH at Pt Temp ABG pO2 at Pt Temp ABG HCO3 Sodium 134 L Potassium Chloride 94 L Carbon Dioxide Anion Gap BUN 49 H Creatinine 6.09 H* Random Glucose Calcium Ferritin Troponin I High Sens 92.8 H* D C-Reactive Protein B-Natriuretic Peptide 1702 H Total Protein 5.9 L Albumin 3.4 L COVID-19 ([place]) 11/11/21 11/11/21 11/11/21 12:19 15:27 18:27 WBC RBC Hgb Hct MCV Plt Count Immature Gran % (Auto) Neut % (Auto) Lymph % (Auto) Lymph # (Auto) Abs Immat Gran (auto) Absolute Neuts (auto) ABG pH at Pt Temp ABG pO2 at Pt Temp ABG HCO3 Sodium Potassium Chloride Carbon Dioxide Anion Gap BUN Creatinine Random Glucose Calcium Ferritin Troponin I High Sens 176.5 H* D 369.7 H* D C-Reactive Protein B-Natriuretic Peptide Total Protein Albumin COVID-19 ([place]) Positive A 11/12/21 11/12/21 11/13/21 08:51 08:51 08:22 WBC 18.0 H RBC 2.68 L Hgb 8.6 L Hct 26.6 L MCV 99.3 H Plt Count 138 L Immature Gran % (Auto) Neut % (Auto) Lymph % (Auto) Lymph # (Auto) Abs Immat Gran (auto) Absolute Neuts (auto) ABG pH at Pt Temp ABG pO2 at Pt Temp ABG HCO3 Sodium 134 L Potassium 5.8 H D 5.6 H Chloride 94 L Carbon Dioxide 21 L Anion Gap 25 H 25 H BUN 71 H 62 H Creatinine 7.92 H* 6.63 H* Random Glucose 132 H Calcium 8.1 L D Ferritin 3601 H Troponin I High Sens C-Reactive Protein 41.65 H B-Natriuretic Peptide Total Protein Albumin COVID-19 ([place]) 11/13/21 11/14/21 08:22 09:34 WBC 15.7 H RBC 2.67 L Hgb 8.6 L Hct 27.1 L MCV 101.5 H Plt Count Immature Gran % (Auto) Neut % (Auto) Lymph % (Auto) Lymph # (Auto) Abs Immat Gran (auto) Absolute Neuts (auto) ABG pH at Pt Temp 7.28 L ABG pO2 at Pt Temp 166 H ABG HCO3 21 L Sodium Potassium Chloride Carbon Dioxide Anion Gap BUN Creatinine Random Glucose Calcium Ferritin Troponin I High Sens C-Reactive Protein B-Natriuretic Peptide Total Protein Albumin COVID-19 ([place]) Microbiology: Microbiology 11/11/21 15:27 Blood - Venous Blood Culture - Preliminary No growth after 48 hours. 11/11/21 15:27 Blood - Venous Blood Culture - Preliminary No growth after 48 hours. Assessment and Plan (1) Renal cancer: Status: Acute (2) CVA (cerebral vascular accident): Status: Acute (3) Malignant pleural effusion: Status: Acute (4) Chronic respiratory failure: Status: Acute (5) COPD (chronic obstructive pulmonary disease): Status: Acute Plan The patient carries a poor prognosis in view of all her comorbidities. My recommendation is to change her code status to MOTOR TESTER. Procedures Date of Service Date of Service: 11/15/21
[2021-11-15 09:48] LABS: Vancomycin Random 17.7 mcg/mL (15-20)
--- NOTE | 2021-11-15 10:07 | P.CDIC_ITS ---
CDI Concurrent Query Documentation Clarification: PHYSICIAN'S DOCUMENTATION REQUEST Date of Query: 11/15/21 1007 Patient Name: Sarina Webster Admit Date: 11/11/21 Dear Doctor, A review of the medical record indicates additional documentation may be needed. Please review below and update the documentation accordingly. Clinical Indicators: Risk Factors/Clinical Indicators/Treatments PN: 11/14 - Assessment/plan: Acute encephalopathy. Appears confused, increasing anxiety and confusion, does not know where she is. CT head stat. Based on the above, please further specify, in the Progress Notes, the known or suspected type of the documented encephalopathy: * Metabolic * Toxic * Toxic metabolic * Due to a specified condition (such as UTI, hyponatremia, CVA, etc.) * Other (please specify) * Unable to determine Use of terms such as suspected, likely, concern for, or probable (associated with a specific diagnosis that is being evaluated, monitored, or treated as if it exists) are acceptable and can be coded in the inpatient setting, when documented at the time of discharge. Thank you, Julianne Hines [facility], CDIS Extension: [phone] Please use your independent medical judgment in providing your response. THIS QUERY IS PART OF THE PERMANENT MEDICAL RECORD Provider Response: Other Other Diagnosis: Acute CVA
--- NOTE | 2021-11-15 10:51 | P.EN_ITS ---
Event Note Date of Service: 11/15/21 Event Note: Change in status note S Pt seen and examined; Obtunded and not speaking, unable to obey commands O vitral -- last documented obtunded and not able to obey commands appears to be in distress A/P This is a 71-year-old female with a past medical history of chronic respiratory failure with hypoxia on home O2, ESRD on dialysis Monday, metastatic renal cell carcinoma on palliative care at home who was diagnosed with COVID on October 31.? She [place] [facility] [place] with acute shortness of breath and respiratory distress.? She was found to have significantly elevated blood pressures over 200 systolic for urgent dialysis.? She was transferred out once improved the same day. Patient was being treated for superimposed bacterial infection in the setting of lung mets (renal cell carcinoma primary) + COVID + chronic resp failure who dev eloped acute CVA resulting in worsening metabolic/toxic encephalopathy. In light of her chronic co-mobidities and poor prognosis, both myself and Dr. Callejas from pulmonary recommended comfort care. The daughter, Carli, who was bedside this AM was in agreement. All questions answered. ANALYST PROGRAMMER orders placed. Active Diagnosis (prior to ANALYST PROGRAMMER status): Acute left occipital lobe CVA COVID-19 Acute on chronic respiratory failure with hypoxia Suspected multidrug resistant bacterial pneumonia ESRD on hemodialysis Monday Toxic/metabolic encephalopathy due to COVID/Bacterial Pneumonia/Hypoxemia complicated by acute CVA Metastatic Renal Cell Ca (with mets to Lungs)
[2021-11-15] MEDS: HYDROmorphone HCl 1 MG/ML SYRINGE IVPUSH ×2 (11:04→22:49)
[2021-11-15] MEDS: Scopolamine 1.5 MG PATCH.TD.3 EAR-BEHIND (11:12)
--- NOTE | 2021-11-15 14:21 | MHC.CM.PN ---
EMR REVIEWED, PER HOSPITALIST PT PLACED ON MACHINE TAPER, NO PLAN FOR D/C AT THIS TIME, CM WILL CONT TO FOLLOW.
--- NOTE | 2021-11-15 16:57 | MHC.SLORD ---
Speech Language Pathology Order Status: TURBINE OPERATOR received order for bedside dysphagia evaluation. Discussed w/ RN and MD. Patient now VIRTUAL CUSTOMER ASSISTANT, TURBINE OPERATOR consult no longer needed. Order cx per MD. Please re-refer if TURBINE OPERATOR can be of further assistance.
[2021-11-15] MEDS: Atropine Sulfate 1 % Ophth Sol 2 ML BOTTLE 2 DROP SUBLINGUAL (20:34)
[2021-11-16] VITALS: RESP 18
[2021-11-16] MEDS: HYDROmorphone HCl 1 MG/ML SYRINGE IVPUSH ×3 (05:40→20:05)
[2021-11-16 07:36] VITALS: RESP 18
--- NOTE | 2021-11-16 09:34 | MHC.CM.PN ---
CM MET W/HOSPITALIST WHO REPORTED PT'S FAMILY HAS DECIDED TO TAKE PT HOME W/HOSPICE, CM MET W/DTR LENI [phone] AT BEDSIDE WHO REPORTS SHE HAS BEEN SPEAKING [facility] PT WAS ACTIVE W/THEM PRIOR TO ADMISSION AND SHE WOULD LIKE THEIR SERVICES FOR HOSPICE CARE, REFERRAL HAS BEEN PLACED IN [facility], CM AWAITING RESPONSE.
--- NOTE | 2021-11-16 09:59 | PM.EVENT ---
Event Note Date of Service: 11/16/21 Event Note: Day Team Note Pt seen and examined. Daughter bedside. Would like to take mother home as per the patients wishes. (on hospice) breathing mid teens pupils still normal size and reactive minimally responsive to verbal stimuli a/p 71 yo F with metastatic renal cell ca, covid, bacterial pneumonia, esrd who presented with HTN emergency requiring bipap and emergent dialysis. hospital course complicated by acute cva status changed to comfort care plan to transition to hospice at home per pt/family wishes -- case mgmt informed d/c once arrangements have been made for hospice
--- NOTE | 2021-11-16 12:14 | P.DS_ITS ---
DS: Providers Provider Date of Service: 11/16/21 Date of admission: 11/11/21 14:04 Primary care physician: Natalia Mayer MD Consults: 11/12/21 08:17 Consult to Nephrology Routine Consulting Provider: Sim Navarro Reason for consultation: ESRD 11/13/21 12:14 Consult to Infectious Diseases Routine Consulting Provider: Holly Rowe Reason for consultation: COVID 2 weeks ago, immune compromised, ? treatment DS: Diagnosis Discharge Diagnosis (1) Renal cancer: Status: Acute (2) CVA (cerebral vascular accident): Status: Acute (3) Malignant pleural effusion: Status: Acute (4) Chronic respiratory failure: Status: Acute (5) COPD (chronic obstructive pulmonary disease): Status: Acute DS: Summary Hospital Course Hospital Course: HPI From the admission H&P: 'Mrs. Webster is admitted to the ICU with acute respiratory failure secondary to hypertensive crisis induced acute pulmonary edema, for urgent hemodialysis. The patient is a 71 yo female with PMHx of O2 dependent COPD on 1L NC at home; ESRD on HD M/W/F via left arm AVF; metastatic renal cell carcinoma with pulmonary metastasis (s/p wedge resection 2020) & malignant pleural effusion, s/p chemo & Ketruda, and anemia.? She is on palliative care at home, and has DNR/DNI status.?Her COVID swab did come back positive.? The patient became symptomatic for COVID-19 on October 31, tested positive 2 days later, and did her home quarantine. She was BIBA with worsening SOB x 5 days. ?She last got a full session of dialysis yesterday. She has been using her inhalers and nebulizers without i mprovement. ?She increased her oxygen yesterday from 1L to 2L NC. ?She reports feeling warm but did not check her temperature. She has a nonproductive cough. ?She denies sick contacts. Her medications include amiodarone, clopidogrel, thyroid, losartan, amlodipine, metoprolol, atorvastatin, oxycodone, and hydromorphone. On arrival to the ED, patient was in moderate respiratory distress with increased work of breathing and accessory muscle use.? On 40% FiO2, RR was 30, Sat 100%, HR 100, initial BP 248/104, afebrile.? She had JVD, and diffuse rales and crackles throughout the lungs.? There was no lower extremity edema.? Chest x-ray showed bilateral pulmonary infiltrates, read by the radiologist as pulmon vascular congestion/CHF, with probable bilateral pleural effusions and left lower lobe opacity of unclear etiology, not too different qualitatively from previous films, just worse. ED labs notable for a white count of 16, hemoglobin 8.9, BUN/creatinine 49/6.0, bicarb 25, potassium 4.8, lactic acid 1.0, troponin 92 which evans to 176, BNP 1702.? Venous blood gas showed 7.37/41/0.? COVID swab was positive. She was put on CPAP, blood cultures were drawn and she was given antibiotics.? She was given NTP and her BP dropped to 160 systolic.? I advised more NTP and opiates to slow her WOB.? She was then admitted to ICU for urgent HD. On my exam, she is fully awake and oriented, breathing easy on CPAP, doesn?t look very ill, and looks thoroughly nontoxic.? HR 107, BP 172/78 w 2? NTP on her chest.? On CPAP 10/30%, RR was 30, Vt 330cc, Ve 10L, Sat 99%.? We switched her to BiPAP 10/5/30%, RR was 29, Vt 460cc, Ve 13L, Sat 99%.? Temp 99?.? No JVD, no edema. IMPRESSION: 1. Underlying O2 dependent COPD 2. ESRD 3. Metastatic renal cell carcinoma, on palliative care at home.? DNR/DNI status. 4. Anemia. 5. COVID w symptom onset date October 31.? Given her comorbidities, it?s very possible that she?s still infectious.?? It?s also very possible that she?s entering the pulmonary phase. 6. Acute respiratory distress/respiratory failure.? Looks to be garden variety acute pulmonary edema 2? hypertensive crisis, that usually happens in the ESRD patients who miss a HD session (i.e. they?re underdialyzed).? And usually responds promptly to high dose IV nitroglycerin, if enough is given.? Could possibly have avoided the need for acute HD, given that this patient was not underdialyzed and was not volume overloaded. 7. ID:? I?m very doubtful that she has bacterial pneumonia.? I canceled the antibiotics that the ED had written for her.? But it?s important to keep in mind that this patient is in the stage of COVID where she could enter the pulmonary phase, and develop resp failure 2? COVID, as opposed to pulmon edema.? I would suggest a chest CT when dialysis is over to further define what her current pulmonary process is, given that the CXR is not 100% clear. In any event, if she does well, she can be discharged from the ICU to the med- surg after the HD session.? And if everything goes well, she doesn't need any labs tomorrow morning. ADDENDUM:? At end of HD, BP is 187/99.? The patient tells us that she didn't take her BP meds today (amlodipine, losartan, and metoprolol).? We'll give them to her now.? Also put 2 NTP back on.? She's breathing easy.? Came off BiPAP onto 2L NC with no problem. ADDENDUM at 20:26:? BP now 127/55.? She's lying comfortably in bed, breathing easy, Sat 92-94% on 2L NC.? Will send her up to med-surg, stopping thru radiology to get a noncontrast chest CT on the way upstairs.? Signed out to Dr. Pink. Critical care time (including extended discussion with ED staff, and multiple discussion with renal):? 80+ minutes Hospital Course: Patient underwent urgent dialysis with BiPAP support in the intensive care unit. She was subsequently transitioned out to the floor. On the floor she was evaluated by Infectious Disease and Pulmonary. In light elevated procalcitonin and immune-compromised state, treatment for multidrug resistant pneumonia was initiated with vancomycin and cefepime. Initially the patient improved for the next 1-2 days. However her condition again deteriorated and she became more lethargic. A CT of the brain was completed which showed an acute left occipital lobe CVA. Due to her multiple chronic comorbidities and continued decline, family elected for comfort care. The patient was ultimately transition to hospice at home. Final discharge diagnosis 1. Acute on chronic respiratory failure with hypoxia 2. Hypertensive emergency 3. COVID-19 4. Suspected multidrug resistant pneumonia 5. Acute left occipital lobe CVA 6. Toxic/metabolic encephalopathy due to COVID, pneumonia, hypoxia 7. Renal cell carcinoma with metastases to the lungs. Time Spent with Patient Time attestation: Total time spent providing and/or coordinating discharge services: Discharge coordination time: Greater than 30 minutes Quality: Safe Use of Opioids Does Pt have an Active Cancer Diagnosis on the Problem List?: Yes Opioid Measure Date for [facility] Report: 10/17/21 Opioid Measure Time for [facility] Report: 12:21 Quality: Stroke Does the patient have a stroke diagnosis?: Yes Reason for No Anti-thrombotic at DC: Not indicated (Hospice) Reason for No Anticoagulant at DC: Not indicated (Hospice) Reason Not Initiating IV-Tpa: Not indicated (Hospice) Reason for No Anti-thrombotic by Day Two: Not indicated (Hospice) Reason for No Statin at DC: Not indicated (Hospice) Physical Exam Vital Signs: Vital Signs: Last Vital Signs Temp 98.3 F 11/15/21 07:47 Pulse 90 11/15/21 07:47 Resp 18 11/16/21 07:36 BP 142/65 H 11/15/21 07:47 Pulse Ox 95 11/15/21 07:47 O2 Del Method 11/15/21 11:43 O2 Flow Rate 2 11/15/21 11:43 FiO2 30 11/11/21 18:51 Oxygen Flow Rate 30 11/11/21 14:04 BMI result Body Mass Index 22.9 Const: Other: Minimally responsive Appears comfortable No tachypnea Pupils normal size and reactive DS: Data Data Completed and Pending Labs on day of discharge: Preliminary micro results at discharge 11/11/21 15:27 Blood Culture - Preliminary Blood - Venous No growth after 48 hours. 11/11/21 15:27 Blood Culture - Preliminary Blood - Venous No growth after 48 hours. Discharge Plan Discharge Patient Disposition: Hospice - Home Discharge Diagnosis: CVA, Pneumonia, COVID, Respiratory Failure, ESRD, Hospice Care Referrals: Natalia Mayer MD [Primary Care Provider] - 1 Week Discharge Medications: New morphine concentrate 100 mg/5 mL (20 mg/mL) solution 5 mg PO Q6H PRN (Reason: pain/dyspnea ) Qty: 30 0RF Rx Instructions: Hospice Care patient. atropine 1 % drops 1 drp PO Q4-6H PRN (Reason: secretions) Qty: 15 0RF Rx Instructions: administer to back of throat/tongue and swallow lorazepam 2 mg/mL concentrate 0.5 mg PO Q6H PRN (Reason: anxiety) Qty: 30 0RF Discontinued amlodipine 5 mg tablet 1 tab PO DAILY Jackie-Kami 0.8 mg tablet 1 tab PO DAILY lidocaine HCl [Lidocaine Viscous] 2 % solution 5 ml mucous membrane Q4H PRN (Reason: Mouth Pain) Rx Instructions: magic mouth wash- swish and spit oxycodone 5 mg tablet 5 mg PO Q4H PRN (Reason: pain) lorazepam 0.5 mg tablet 0.5 mg PO BID PRN (Reason: anxiety) Trelegy Ellipta 100-62.5-25 mcg blister with device 1 inh inhalation DAILY 30 Days Qty: 60 11RF ropinirole 0.25 mg tablet 0.25 mg PO BID losartan 50 mg tablet 50 mg PO BID metoprolol succinate 25 mg tablet extended release 24 hr 25 mg PO DAILY clopidogrel 75 mg tablet 75 mg PO DAILY levothyroxine 25 mcg tablet 25 mcg PO DAILY sevelamer carbonate 800 mg tablet 1,600 mg PO QID Rx Instructions: TAKE WITH FOOD amiodarone 200 mg tablet 200 mg PO DAILY cholecalciferol (vitamin D3) 50 mcg (2,000 unit) tablet 50 mcg PO DAILY cetirizine 10 mg tablet 10 mg PO DAILY Jackie-Kami 0.8 mg tablet 1 tab PO DAILY albuterol sulfate 90 mcg/actuation HFA aerosol inhaler 2 puff inhalation Q6H PRN (Reason: wheezing) Pain Ease Medium [place] Aerosol,[place] 1 spray topical ONCE Label Comments: PRIOR TO DIALYSIS atorvastatin 40 mg tablet 40 mg PO DAILY tramadol 50 mg tablet 25 mg PO Q12H Discharge Orders: Discharge Order (Routine); Ordered 11/16/21 Ordered By: Ace Miranda Diet: Feed for comfort Activity on Discharge: As tolerated Stand Alone Forms: Patient Portal Discharge page Care Plan Goals: To receive hospice services at home Health Concerns: Patient is being discharged home on hospice Plan of Treatment: Patient will have hospice care at home Assessment: See discharge summary
--- NOTE | 2021-11-16 13:58 | MHC.CM.PN ---
PT CLEARED FOR D/C HOME W/NEW HOSPICE W/[facility], PER [facility] BED/O2 WILL BE DELIVERED TODAY BY 5PM, DTR/HCP LENI MONZON W/PLAN FOR D/C TODAY, TRANSPORT SET UP AT 5:30PM, IF AMBULANCE IS DELAYED AN UNREASONABLE AMOUNT OF TIME WILL HOLD TRANSPORT UNTIL TOMORROW, PT'S [facility] NURSE SERENE WILL SEE AND COMPLETE INTAKE ONCE PT IS HOME.
[2021-11-16] MEDS: Atropine Sulfate 1 % Ophth Sol 2 ML BOTTLE 2 DROP SUBLINGUAL (15:09)
[2021-11-16 16:00] VITALS: BP 102/52; PULSE 74; RESP 17; TEMP 36.6; O2SAT 95
--- NOTE | 2021-11-16 17:06 | MHC.CM.PN ---
D/C DELAYED UNTIL TOMORROW D/T EQUIPMENT DELAY AND UNABLE TO RESCHEDULE TRANSPORT FOR A REASONABLE HOUR, PT'S DTR LENI AWARE.
--- NOTE | 2021-11-16 22:37 | PM.EVENT ---
Event Note Date of Service: 11/16/21 Event Note: note: Around 22:25 on 11/16/2021, RN mentioned the patient appears . Upon examination patient was not responding, no corneal reflex, pupils are fixed and dilated. Patient pronounced at 22:30 on 11/16/2021.
== END 2021-11-16 23:45 | disposition expired | DRG 193 ==
LOC: HO.ED 14:15 → HO.EDOVER 15:00 → HO.ICU 15:48 → HO.IMC 11-12 06:15
PROVIDERS: Physician Assistant; Absent Provider Hospitalist; Admitting Provider Anesthesiology; Emergency Provider Emergency Medicine; PCP Internal Medicine; Visit Provider Family Medicine
DX: J15.9 Unspecified bacterial pneumonia (principal); G92.8 Other toxic encephalopathy; I63.89 Other cerebral infarction; J81.0 Acute pulmonary edema; J96.21 Acute and chronic respiratory failure with hypoxia; U07.1 COVID-19; N18.6 End stage renal disease; C79.00 Secondary malignant neoplasm of unspecified kidney and renal pelvis; J91.0 Malignant pleural effusion; J44.0 Chronic obstructive pulmonary disease with (acute) lower respiratory infection; Z16.35 Resistance to multiple antimicrobial drugs; Z66 Do not resuscitate; Z99.81 Dependence on supplemental oxygen; Z92.21 Personal history of antineoplastic chemotherapy; I16.0 Hypertensive urgency; D63.1 Anemia in chronic kidney disease; D63.0 Anemia in neoplastic disease; Z51.5 Encounter for palliative care; Z99.2 Dependence on renal dialysis; Z86.73 Personal history of transient ischemic attack (TIA), and cerebral infarction without residual deficits; Z87.891 Personal history of nicotine dependence; Z88.0 Allergy status to penicillin; Z88.1 Allergy status to other antibiotic agents; Z79.899 Other long term (current) drug therapy
CPT/HCPCS: 36415; 36600; 70450; 71045; 71250; 80048; 80076; 80202; 82728; 82803; 83605; 83615; 83735; 83880; 84145; 84484; 85025; 85027; 85379; 86140; 87040; 87635; 90999; 93005; 94660; 96374; 99285; J0692; J1170; J2405; J3360; J3370